=== PATIENT | female | born 1940 | race Hispanic/Latino ===

== ENCOUNTER 2018-03-13 10:07 | Outpatient (CLI) | payer MEDICARE | END 2018-03-13 10:08 | disposition home or self-care (01) | LOC: BICMAMMO 10:07 | PROVIDERS: ATTEND Family Medicine | DX: N64.89 Other specified disorders of breast (principal) | CPT/HCPCS: 77066; G0279 ==

== ENCOUNTER 2018-03-14 09:03 | Outpatient (CLI) | payer MEDICARE ==
[2018-03-14 12:58] LABS: #Eosinphils 0.1 thou/uL (0.0-0.7); #Lymphocytes 2.5 thou/uL (1.20-3.40); #Monocytes 0.4 thou/uL (0.11-0.59); #Neutrophils 3.3 thou/uL (1.40-6.50); %Basophils 0.6 % (0.0-1.0); %Eosinophils 1.3 % (0.0-10.0); %Monocytes 7.1 % (0.0-10.0); Bilirubin Negative (Negative); Blood, Urine Trace (Negative); Clarity CLEAR (Clear); Glucose, Urine (Dipstick) Negative (Negative); Hemoglobin 13.3 g/dL (12.0-16.0); Leukocyte Small (Negative); Mean Corpuscular Hemoglobin 30.6 pg (27.0-31.0); Mean Corpuscular Volume 90.1 fl (81.0-99.0); Mean Platelet Volume 7.5 fL (7.4-10.4); Nitrite Positive (Negative); Platelet Count 224 thou/uL (130-400); Protein, Urine (Dipstick) Negative (Neg-Trace); RBC Distribution Width 12.7 % (11.5-14.5); Red Blood Cell (RBC) Count 4.36 mill/uL (4.20-5.40); Specific Gravity, Urine 1.019 (1.002-1.036); Urobilinogen 0.2 mg/dL (0.2-1.0); White Blood Cell (WBC) Count 6.3 thou/uL (4.8-10.8); pH, Urine 5.5 (5.0-9.0)
[2018-03-14 13:01] LABS: Bacteria/HPF 4+ HPF (None Seen); Hyaline Casts/LPF 0-3 HYALINE CAST LPF (0-3 Hyaline); Pathc Cast-AUWi Flag 0.29 (0-2.49); Squamous Epithelial 0-3 HPF (0-3)
[2018-03-14 13:05] LABS: INR-International Normal Ratio 1.1; Prothrombin Time 14.6 SEC (12.0-14.7)
[2018-03-14 13:06] LABS: PTT 39.7 SEC (22.9-36.1)
--- NOTE | 2018-03-14 13:11 | RAD ---
PA AND LATERAL CHEST: INDICATIONS: Preop evaluation. FINDINGS: The lungs are clear. The cardiomediastinal silhouette is within normal limits. There are mitral nathan ular calcifications involving the left heart. There are calcific tendinosis involving the right grea ter tuberosity. There is a healed deformity involving the proximal left humerus. There are DISH lik e changes involving the thoracic spine. IMPRESSION: No acute cardiopulmonary abnormality POS: [facility]
[2018-03-14 13:18] LABS: Anion Gap 12 mmol/L (10-20); BUN (Urea Nitrogen) 14 mg/dL (9.8-20.1); Calc. Creatinine Clearance 0 mL/min (70-130); Calcium 9.5 mg/dL (7.8-10.44); Carbon Dioxide 22 mmol/L (23-31); Chloride 99 mmol/L (98-107); Estimated GFR-MDRD 86; Glucose 104 mg/dL (83-110); Potassium 4.5 mmol/L (3.5-5.1); Sodium 128 mmol/L (136-145)
== END 2018-03-14 09:04 | disposition home or self-care (01) ==
LOC: LABBT 09:03
PROVIDERS: ATTEND Orthopaedic Surgery
DX: Z01.818 Encounter for other preprocedural examination (principal); M17.11 Unilateral primary osteoarthritis, right knee
CPT/HCPCS: 71046; 80048; 81001; 85025; 85610; 85730; 86850; 86900; 86901; 93005; 93010

== ENCOUNTER 2018-03-19 09:19 | Inpatient (IN) | payer MEDICARE ==
[2018-03-14 09:27] VITALS: BMI 36.5
[2018-03-19] MEDS ORDERED: CEFAZOLIN/Water 2 GM/20 ML SYRINGE ONE (09:39)
[2018-03-19] MEDS ORDERED: Vancomycin HCl 1.5 GM in Sodium Chloride 0.9% 250 ML 300 ML IVPB SCH (09:45)
[2018-03-19] MEDS ORDERED: Fentanyl 100 MCG/2 ML VIAL ONE ×3 (10:14→15:49)
[2018-03-19] MEDS ORDERED: Midazolam HCl 2 mg/2 ml Vial ONE (10:14)
[2018-03-19] MEDS ORDERED: Fentanyl 100 MCG/2 ML VIAL SLOW IVP PRN (10:55)
[2018-03-19] MEDS ORDERED: diphenhydrAMINE 25 MG CAP PO PRN (10:55)
[2018-03-19] MEDS ORDERED: HYDROcodone/Acetaminophen 10/325 mg Tablet PO PRN ×2 (10:55→11:42)
[2018-03-19] MEDS ORDERED: Promethazine HCl 25 MG/ML VIAL IM PRN ×2 (10:55→11:42)
[2018-03-19] MEDS ORDERED: Acetaminophen 325 MG TAB PO PRN (10:55)
[2018-03-19] MEDS ORDERED: Ondansetron HCl/PF 4 MG/2 ML Vial IVP PRN ×2 (10:55→11:42)
[2018-03-19] MEDS ORDERED: Zolpidem Tartrate 5 MG TAB PO PRN ×2 (10:55→11:42)
[2018-03-19] MEDS ORDERED: Tranexamic Acid 1,000 MG in Sodium Chloride 0.9% 100 ML IVPB SCH (11:00)
[2018-03-19] MEDS ORDERED: Bupivacaine/Epinephrine 0.25% 30 ML VIAL ONE ×2 (11:07→13:49)
[2018-03-19] MEDS ORDERED: Fentanyl 100 MCG/2 ML VIAL IV PRN (11:45)
[2018-03-19] MEDS ORDERED: Ropivacaine 0.5% HCl/PF (150 MG/30 ML VIAL) ONE (13:49)
[2018-03-19] MEDS ORDERED: Ropivacaine 0.2% HCl/PF (40 MG/20 ML VIAL) ONE (13:49)
[2018-03-19] MEDS ORDERED: Glycopyrrolate 0.2 MG/ML 5 ML SYRINGE ONE (13:50)
[2018-03-19] MEDS ORDERED: PROPOFOL 200 MG/20 ML VIAL ONE (13:50)
[2018-03-19] MEDS ORDERED: Lidocaine 1% PF 5 ML VIAL ONE (13:50)
--- NOTE | 2018-03-19 14:08 | RAD ---
RIGHT KNEE TWO VIEWS: History: Status post arthroplasty. Comparison: None. FINDINGS: Expected post-operative changes. No malalignment. IMPRESSION: Post-operative changes compatible with right knee arthroplasty. POS: [facility]
--- NOTE | 2018-03-19 14:18 | OP ---
DATE OF PROCEDURE: 03/19/2018 PREOPERATIVE DIAGNOSIS: End-stage tricompartmental osteoarthritis, right knee. POSTOPERATIVE DIAGNOSIS: End-stage tricompartmental osteoarthritis, right knee. OPERATIVE PROCEDURE: Cemented cruciate-sparing computer-assisted navigated right total knee arthropl marc. SURGEON: Bhupendra Carlson M.D. AUTOMATIC TOE LASTER: Sriram Mccullough PA-C. ANESTHESIA: General via laryngeal mask airway augmented with indwelling femoral block and a single s hot sciatic. FINDINGS: End-stage severe degenerative tricompartmental disease, bone on bone arthrosis, periarticu lar osteophyte formation, large serous effusion. COMPONENTS USED: [facility] Triathlon cruciate-sparing, primary size 3 femoral component wi th Triathlon cemented size 2, primary tibial baseplate with A29 patellar button and a 9 mm polyethyle ne fixed bearing insert. TOURNIQUET TIME: 54 minutes at 300 mmHg. ESTIMATED BLOOD LOSS: Less than 100 mL. DRAINS: None. SPECIMENS: None. COMPLICATIONS: None. COUNTS: Correct. INDICATIONS FOR SURGERY: Danay is a 77-year-old female who has had progressive right knee p ain amplified with standing and walking for the last 5-7 years. She has failed conservative manageme nt and elected to proceed with total knee arthroplasty as definitive treatment of her pain. PROCEDURE IN DETAIL: After informed consent was obtained in the preoperative holding area. The isaiah ent was taken to the operative suite where general anesthesia was induced. Once adequate level of ge neral anesthesia was obtained, the patient was positioned and a well-padded tourniquet was placed chery und the right proximal thigh. The right lower extremity was then prepped and draped in the usual jarrett rile fashion. Prior to exsanguination, a time out was called and all members of the surgical team ag rosie upon site, surgeon, and patient. The extremity was then exsanguinated and the tourniquet was ra ised. A midline longitudinal incision was then made directly over the patella extending two fingerbr eadths above the superior pole of the patella and two fingerbreadths inferior to the inferior patella r pole of the patella. Deeper subcutaneous layers were dissected sharply and local bleeding was cont rolled with Bovie electrocautery. A quad tendon longitudinal split was then made sharply and a media n parapatellar arthrotomy was carried out both sharp and with Bovie electrocautery, carried down to o ne fingerbreadth medial to the tibial tubercle. The knee was then placed into flexion and the patell a was everted nicely, and a copious fat pad ectomy was performed allowing for greater exposure of the tibia. The computer-assisted distal femoral fiducial was then placed and pinned firmly, and the dis maddison femoral cutting guide was pinned firmly into place. The oscillating saw was then used to remove the appropriate amount of bone. The 4-in-1 cutting block was then placed on the distal femur and the oscillating saw was used to remove the appropriate amount of bone off of the anterior, posterior, an d chamfer cuts. After completion of the chamfer cuts, the box-cutting guide was placed, malleted fir mly into place and pinned securely, and an osteotome was used to make the distal cut and the oscillat ing saw was then used to make the medial and lateral box cuts. This came out quite nicely and was re moved with Bovie electrocautery, and the oscillating saw was then used to broaden the lateral medial granados of the box cut. After completion of bone cuts, the anterior cruciate ligament was resected sha rply and the posterior cruciate ligament retractor was placed and the tibia was subluxed for better e xposure. Partial meniscectomies were carried out, and the tibial computer-assisted fiducial was pinn ed, and the cutting guide was placed. Oscillating saw was then used to remove the bone with Hohmann retractors used to take care and protect the collateral ligaments. After the tibial resection was pe rformed, a laminar annealing furnace tender was placed in between the freshened bone cuts. The knee placed at 90 deg nyla and further bilateral meniscectomies were carried out, and the curved osteotome and curettage wa s used to remove any excess bone spurs in the posterior compartment. The trial femoral component, ti bial baseplate were placed with the appropriate polyethylene trial insert with an appropriate polyeth ylene spacer and patellar button. The knee was taken through full range of motion with flexion and e xtension from 0-90 degrees and patellar broach squarely in the trochlea without any squinting or sub luxation noted. The knee was also stable to varus and valgus stressing at 0, 15, 45, and 90 degrees of flexion. The drawer was negative. All trial components were then removed and the keel punch was u sed to provide the appropriate defect in the tibia with a mallet. The freshened bone cuts were copio usly irrigated with pulsatile lavage of about 1-1/2 liters to remove all excess debris. The freshene d bone cuts were then dried and with suction and lap sponge. The knee was placed in flexion and retr actors were placed to provide access to all bone cuts. Tobramycin impregnated methyl methacrylate ce ment was then placed on the freshened bone cuts and implants which were malleted firmly into place. Curettage and Sims elevators were used to remove any excess bone cement. The knee was placed into f ull extension and the patellar button was placed under compression, and the cement was allowed to cur e. Once completed, the components were again taken through full range of motion and copious irrigati on of the knee was carried out with another liter of normal saline. All components were inspected fu lly with full range of motion and varus and valgus stressing. There was no laxity noted and full exte nsion was observed clinically. Primary closure was accomplished with #2 interrupted Vicryl stitch of the arthrotomy defect. This was oversewn with a #2 running Quill barbed stitch. The subcutaneous l yue was then closed with a running 0 barbed Monocryl stitch and skin closure accomplished with a run neema subcuticular 3-0 Monocryl barbed Quill stitch and augmented with cement on the skin. Tourniquet was lowered. Good spontaneous return of distal pulses was noted clinically and a sterile dressing w as applied to the incision. The procedure was terminated without any complications. The patient was awakened in the operative suite and taken to the recovery room in stable condition.
[2018-03-19] MEDS: Sodium Chloride 0.9% 1,000 ML IV SCH ×2 (17:32→22:45)
[2018-03-19] MEDS: Ketorolac Tromethamine 30 MG/ML VIAL IM SCH ×2 (17:32→22:32)
[2018-03-19] MEDS: CEFAZOLIN/Water 2 GM/20 ML SYRINGE SLOW IVP SCH (18:56)
[2018-03-19] MEDS: Atorvastatin Calcium 10 MG TAB PO SCH (21:54)
[2018-03-19] MEDS: Aspirin 81 mg Enteric Coated Tablet PO SCH (21:54)
[2018-03-19] MEDS: Ondansetron ODT 4 MG TAB PO PRN (22:32)
[2018-03-19] MEDS: Ferrous Gluconate 324 MG TAB PO SCH (22:44)
[2018-03-19] MEDS: Senokot S 8.6-50 MG TAB PO SCH (22:45)
[2018-03-20] MEDS: CEFAZOLIN/Water 2 GM/20 ML SYRINGE SLOW IVP SCH (01:12)
--- NOTE | 2018-03-20 02:31 | PDOC.PN ---
- Subjective Encounter Start Date: 03/20/18 Encounter Start Time: 21:00 Subjective: no chest pain or sob or palpitations -: right knee pain is tolerable with current pain meds -: multiple family members at bedside - Objective MAR Reviewed: Yes Vital Signs & Weight: Vital Signs (12 hours) Temp Pulse Resp BP Pulse Ox 03/19/18 23:42 99.4 F 80 18 110/66 92 L 03/19/18 22:00 98.5 F 80 16 121/70 93 L 03/19/18 20:00 98.5 F 80 16 93 L 03/19/18 17:16 98.1 F 76 18 95 03/19/18 16:55 98.1 F 76 18 132/64 95 Weight Weight 187 lb Phys Exam - Physical Examination HEENT: PERRLA, moist MMs Neck: no JVD, supple Respiratory: no wheezing, no rales Cardiovascular: RRR, no significant murmur Gastrointestinal: soft, non-tender, positive bowel sounds Musculoskeletal: pulses present right knee in dressing Neurological: non-focal, moves all 4 limbs Psychiatric: normal affect, A&O x 3 Dx/Plan (1) Status post total knee replacement, right Code(s): Z96.651 - PRESENCE OF RIGHT ARTIFICIAL KNEE JOINT Status: Acute (2) Aortic stenosis Code(s): I35.0 - NONRHEUMATIC AORTIC (VALVE) STENOSIS Status: Chronic Qualifiers: Cardiac valve disease etiology: nonrheumatic Qualified Code(s): I35.0 - Nonrheumatic aortic (valve) stenosis Comment: valve area around 0.91cm2 (3) Hypothyroidism Code(s): E03.9 - HYPOTHYROIDISM, UNSPECIFIED Status: Chronic Qualifiers: Hypothyroidism type: unspecified Qualified Code(s): E03.9 - Hypothyroidism , unspecified (4) HTN (hypertension) Code(s): I10 - ESSENTIAL (PRIMARY) HYPERTENSION Status: Chronic Qualifiers: Hypertension type: essential hypertension Qualified Code(s): I10 - Essential (primary) hypertension (5) Dyslipidemia Code(s): E78.5 - HYPERLIPIDEMIA, UNSPECIFIED Status: Chronic - Plan watch for electrolytes this am, last sod was 128 on 03/14/18 -: continue synthroid, oxybutynin, losartan/hctz -: watch for vol overload with aortic stenosis -: morphine prn, marcaine nr block -: PT per ortho advice, encourage po intake and dc iv fluids if sbp around 110 * . Review of Systems - Medications/Allergies Allergies/Adverse Reactions: Allergies Allergy/AdvReac Type Severity Reaction Status Date / Time gabapentin [From Neurontin] Allergy Verified 03/19/18 10:34 pregabalin [From Lyrica] Allergy Verified 03/19/18 10:33 tramadol [From Ultram] Allergy Verified 03/19/18 10:33 Medications: Current Medications Acetaminophen (Tylenol) 650 mg PO Q4H PRN PRN Reason: GOODMAN/ T > 101F; Mild Pain (1-3) Hydrocodone Bitart/Acetaminophen ([place] 10/325) 1 tab PO Q4H PRN PRN Reason: Moderate Pain (4-6) Hydrocodone Bitart/Acetaminophen ([place] 10/325) 2 tab PO Q4H PRN PRN Reason: Severe Pain (7-10) Hydrocodone Bitart/Acetaminophen ([place] 10/325) 1 tab PO Q4H PRN PRN Reason: Pain (1-3) Hydrocodone Bitart/Acetaminophen ([place] 10/325) 2 tab PO Q4H PRN PRN Reason: PAIN (4-6) Aspirin (Ecotrin) 81 mg PO BID [facility] Last Admin: 03/19/18 21:54 Dose: 81 mg Atorvastatin Calcium (Lipitor) 10 mg PO HS [facility] Last Admin: 03/19/18 21:54 Dose: 10 mg Cholecalciferol (Vitamin D3) 1,000 units PO Maciel@0900 [facility] Diphenhydramine HCl (Benadryl) 25 mg PO Q6H PRN PRN Reason: Itching Duloxetine HCl (Cymbalta) 30 mg PO DAILY [facility] Fentanyl (Sublimaze) 50 mcg SLOW IVP Q30MIN PRN PRN Reason: Moderate Pain (4-6) Fentanyl (Sublimaze) 50 mcg IV Q1H PRN PRN Reason: BT PAIN Ferrous Gluconate (Fergon) 324 mg PO BID [facility] Last Admin: 03/19/18 22:44 Dose: Not Given HCTZ/Losartan Potassium (Hyzaar 50/12.5) 1 tab PO DAILY [facility] Vancomycin HCl 1.5 gm/ Sodium (Chloride) 300 mls @ 200 mls/hr IVPB WILLCALL [facility] Sodium Chloride (Normal Saline 0.9%) 1,000 mls @ 100 mls/hr IV .Q10H [facility] Last Admin: 03/19/18 22:45 Dose: Not Given Bupivacaine HCl 50 ml/ Sodium (Chloride) 100 mls @ 0 mls/hr NERVE BLCK INF [facility] PRN Reason: As Directed Iron/Minerals/Multivitamins (Theragran M) 1 tab PO DAILY [facility] Ketorolac Tromethamine (Toradol) 15 mg IM Q8HR [facility] Stop: 03/21/18 14:01 Last Admin: 03/19/18 22:32 Dose: 15 mg Levothyroxine Sodium (Synthroid) 125 mcg PO 0600 [facility] Ondansetron HCl (Zofran) 4 mg IVP Q6H PRN PRN Reason: Nausea/Vomiting Ondansetron HCl (Zofran Odt) 4 mg PO Q6H PRN PRN Reason: Nausea/Vomiting Last Admin: 03/19/18 22:32 Dose: 4 mg Oxybutynin Chloride (Ditropan Xl) 10 mg PO DAILY [facility] Pneumococcal 13-Valent Conj Vacc (Prevnar) 0.5 ml IM .ONCE ONE Stop: 03/20/18 09:01 Promethazine HCl (Phenergan) 12.5 mg IM Q4H PRN PRN Reason: Nausea/Vomiting Promethazine HCl (Phenergan) 12.5 mg IM Q4H PRN PRN Reason: Nausea Senna/Docusate Sodium (Senokot S) 2 tab PO BID [facility] Last Admin: 03/19/18 22:45 Dose: Not Given Sodium Chloride (Flush - Normal Saline) 10 ml IVF PRN PRN PRN Reason: Saline Flush Zolpidem Tartrate (Ambien) 5 mg PO HSPRN PRN PRN Reason: Insomnia Zolpidem Tartrate (Ambien) 5 mg PO HSPRN PRN PRN Reason: Insomnia
[2018-03-20] MEDS: HYDROcodone/Acetaminophen 10/325 mg Tablet PO PRN ×2 (03:13→08:45)
[2018-03-20] MEDS: Bupivacaine 0.5% 50 ML in Sodium Chloride 0.9% 50 ML NERVE BLCK SCH ×2 (03:40→17:36)
[2018-03-20] MEDS: Ketorolac Tromethamine 30 MG/ML VIAL IM SCH ×3 (05:29→22:15)
[2018-03-20] MEDS: Levothyroxine Sodium 125 MCG TAB PO SCH (05:31)
[2018-03-20 05:56] LABS: Hemoglobin 10.8 g/dL (12.0-16.0); Mean Corpuscular HGB CONC 33.8 g/dL (32.0-36.0); Mean Corpuscular Hemoglobin 30.5 pg (27.0-31.0); Mean Corpuscular Volume 90.4 fl (81.0-99.0); Mean Platelet Volume 7.5 fL (7.4-10.4); Platelet Count 160 thou/uL (130-400); RBC Distribution Width 12.5 % (11.5-14.5); Red Blood Cell (RBC) Count 3.53 mill/uL (4.20-5.40)
[2018-03-20] MEDS: Sodium Chloride 0.9% 1,000 ML IV SCH ×2 (08:40→18:11)
[2018-03-20] MEDS: DULoxetine 30 MG CAP PO SCH (08:44)
[2018-03-20] MEDS: Multivitamin W/ Minerals 1 TAB PO SCH (08:45)
[2018-03-20] MEDS: Senokot S 8.6-50 MG TAB PO SCH ×2 (08:45→20:44)
[2018-03-20] MEDS: Ferrous Gluconate 324 MG TAB PO SCH ×2 (08:45→20:44)
[2018-03-20] MEDS: Aspirin 81 mg Enteric Coated Tablet PO SCH ×2 (08:45→20:44)
[2018-03-20] MEDS: Oxybutynin ER 5 MG TAB PO SCH (08:45)
[2018-03-20] MEDS ORDERED: OXYBUTYNIN CHLORIDE PO SCH (09:00)
[2018-03-20] MEDS ORDERED: Prevnar 13-Val Conj/PF 0.5 ML SYRINGE IM ONE (09:00)
--- NOTE | 2018-03-20 17:40 | PDOC.PN ---
- Subjective Encounter Start Date: 03/20/18 Encounter Start Time: 14:40 Pt seen for followup re: hyponatremia. Denies chest pain, shortness of breath, fevers or chills. No nausea or vomiting. - Objective MAR Reviewed: Yes Vital Signs & Weight: Vital Signs (12 hours) Temp Pulse Pulse Resp BP BP BP 03/20/18 15:35 98.5 F 67 18 03/20/18 14:04 117/64 119/58 L 111/56 L 03/20/18 11:25 98.3 F 72 18 03/20/18 10:15 115/72 03/20/18 08:46 73 100/59 L 03/20/18 08:00 98.6 F 71 18 03/20/18 07:35 98.6 F 71 18 BP BP Pulse Ox Pulse Ox 03/20/18 15:35 116/72 93 L 03/20/18 14:04 105/66 03/20/18 11:25 102/63 92 L 03/20/18 10:15 03/20/18 08:46 93 L 03/20/18 08:00 03/20/18 07:35 113/67 92 L Weight Admit Weight 187 lb Weight 187 lb I&O: 03/19/18 03/20/18 03/21/18 06:59 06:59 06:59 Intake Total 1175 Output Total 1999 Balance -825 Result Diagrams: 03/20/18 04:58 Additional Labs: Labs reviewed by me Phys Exam - Physical Examination Obese HEENT: moist MMs Neck: supple Respiratory: clear to auscultation bilateral Cardiovascular: RRR Gastrointestinal: soft s/p R knee surgery Neurological: moves all 4 limbs Psychiatric: normal affect Dx/Plan (1) Hyponatremia Code(s): E87.1 - HYPO-OSMOLALITY AND HYPONATREMIA Status: Acute Comment: Likely asymptomatic. Check sodium level tomorrow AM (2) HTN (hypertension) Code(s): I10 - ESSENTIAL (PRIMARY) HYPERTENSION Status: Chronic Qualifiers: Hypertension type: essential hypertension Qualified Code(s): I10 - Essential (primary) hypertension Comment: Controlled (3) Hypothyroidism Code(s): E03.9 - HYPOTHYROIDISM, UNSPECIFIED Status: Chronic Qualifiers: Hypothyroidism type: unspecified Qualified Code(s): E03.9 - Hypothyroidism , unspecified Comment: continue levothyroxine (4) Dyslipidemia Code(s): E78.5 - HYPERLIPIDEMIA, UNSPECIFIED Status: Chronic Comment: continue statin (5) Aortic stenosis Code(s): I35.0 - NONRHEUMATIC AORTIC (VALVE) STENOSIS Status: Chronic Qualifiers: Cardiac valve disease etiology: nonrheumatic Qualified Code(s): I35.0 - Nonrheumatic aortic (valve) stenosis Comment: stable (6) Arthritis Code(s): M19.90 - UNSPECIFIED OSTEOARTHRITIS, UNSPECIFIED SITE Status: Chronic Comment: s/p R knee surgery - Plan * . Review of Systems - Review of Systems Respiratory: negative: Cough, Shortness of Breath, SOB with Excertion, Pleuritic Pain, Wheezing Cardiovascular: negative: chest pain, palpitations, orthopnea, paroxysmal nocturnal dyspnea, edema, light headedness - Medications/Allergies Allergies/Adverse Reactions: Allergies Allergy/AdvReac Type Severity Reaction Status Date / Time gabapentin [From Neurontin] Allergy Verified 03/19/18 10:34 pregabalin [From Lyrica] Allergy Verified 03/19/18 10:33 tramadol [From Ultram] Allergy Verified 03/19/18 10:33 Medications: Current Medications Acetaminophen (Tylenol) 650 mg PO Q4H PRN PRN Reason: GOODMAN/ T > 101F; Mild Pain (1-3) Hydrocodone Bitart/Acetaminophen ([place] 10/325) 1 tab PO Q4H PRN PRN Reason: Moderate Pain (4-6) Last Admin: 03/20/18 08:45 Dose: 1 tab Hydrocodone Bitart/Acetaminophen (Ogema 10/325) 2 tab PO Q4H PRN PRN Reason: Severe Pain (7-10) Hydrocodone Bitart/Acetaminophen (Ogema 10/325) 1 tab PO Q4H PRN PRN Reason: Pain (1-3) Hydrocodone Bitart/Acetaminophen (Ogema 10/325) 2 tab PO Q4H PRN PRN Reason: PAIN (4-6) Aspirin (Ecotrin) 81 mg PO BID [facility] Last Admin: 03/20/18 08:45 Dose: 81 mg Atorvastatin Calcium (Lipitor) 10 mg PO HS [facility] Last Admin: 03/19/18 21:54 Dose: 10 mg Cholecalciferol (Vitamin D3) 1,000 units PO Maciel@0900 [facility] Diphenhydramine HCl (Benadryl) 25 mg PO Q6H PRN PRN Reason: Itching Duloxetine HCl (Cymbalta) 30 mg PO DAILY [facility] Last Admin: 03/20/18 08:44 Dose: 30 mg Fentanyl (Sublimaze) 50 mcg SLOW IVP Q30MIN PRN PRN Reason: Moderate Pain (4-6) Fentanyl (Sublimaze) 50 mcg IV Q1H PRN PRN Reason: BT PAIN Ferrous Gluconate (Fergon) 324 mg PO BID [facility] Last Admin: 03/20/18 08:45 Dose: 324 mg HCTZ/Losartan Potassium (Hyzaar 50/12.5) 1 tab PO DAILY [facility] Last Admin: 03/20/18 08:45 Dose: 1 tab Vancomycin HCl 1.5 gm/ Sodium (Chloride) 300 mls @ 200 mls/hr IVPB WILLCALL [facility] Sodium Chloride (Normal Saline 0.9%) 1,000 mls @ 100 mls/hr IV .Q10H [facility] Last Admin: 03/20/18 08:40 Dose: Not Given Bupivacaine HCl 50 ml/ Sodium (Chloride) 100 mls @ 0 mls/hr NERVE BLCK INF [facility] PRN Reason: As Directed Last Admin: 03/20/18 03:40 Dose: 100 mls Iron/Minerals/Multivitamins (Theragran M) 1 tab PO DAILY [facility] Last Admin: 03/20/18 08:45 Dose: 1 tab Ketorolac Tromethamine (Toradol) 15 mg IM Q8HR [facility] Stop: 03/21/18 14:01 Last Admin: 03/20/18 14:34 Dose: 15 mg Levothyroxine Sodium (Synthroid) 125 mcg PO 0600 [facility] Last Admin: 03/20/18 05:31 Dose: 125 mcg Ondansetron HCl (Zofran) 4 mg IVP Q6H PRN PRN Reason: Nausea/Vomiting Ondansetron HCl (Zofran Odt) 4 mg PO Q6H PRN PRN Reason: Nausea/Vomiting Last Admin: 03/19/18 22:32 Dose: 4 mg Oxybutynin Chloride (Ditropan Xl) 10 mg PO DAILY [facility] Last Admin: 03/20/18 08:45 Dose: 10 mg Promethazine HCl (Phenergan) 12.5 mg IM Q4H PRN PRN Reason: Nausea/Vomiting Promethazine HCl (Phenergan) 12.5 mg IM Q4H PRN PRN Reason: Nausea Senna/Docusate Sodium (Senokot S) 2 tab PO BID [facility] Last Admin: 03/20/18 08:45 Dose: 2 tab Sodium Chloride (Flush - Normal Saline) 10 ml IVF PRN PRN PRN Reason: Saline Flush Zolpidem Tartrate (Ambien) 5 mg PO HSPRN PRN PRN Reason: Insomnia Zolpidem Tartrate (Ambien) 5 mg PO HSPRN PRN PRN Reason: Insomnia
[2018-03-20] MEDS: Atorvastatin Calcium 10 MG TAB PO SCH (20:44)
[2018-03-21] MEDS: Bupivacaine 0.5% 50 ML in Sodium Chloride 0.9% 50 ML NERVE BLCK SCH ×2 (01:30→15:42)
[2018-03-21] MEDS: Sodium Chloride 0.9% 1,000 ML IV SCH ×2 (03:36→16:23)
[2018-03-21 04:35] LABS: Hemoglobin 10.7 g/dL (12.0-16.0); Mean Corpuscular HGB CONC 34.9 g/dL (32.0-36.0); Mean Corpuscular Hemoglobin 31.7 pg (27.0-31.0); Mean Platelet Volume 7.7 fL (7.4-10.4); Platelet Count 146 thou/uL (130-400); RBC Distribution Width 12.4 % (11.5-14.5); Red Blood Cell (RBC) Count 3.36 mill/uL (4.20-5.40)
[2018-03-21 04:48] LABS: Anion Gap 8 mmol/L (10-20); BUN (Urea Nitrogen) 9 mg/dL (9.8-20.1); Calc. Creatinine Clearance 136 mL/min (70-130); Calcium 8.2 mg/dL (7.8-10.44); Carbon Dioxide 28 mmol/L (23-31); Chloride 100 mmol/L (98-107); Estimated GFR-MDRD Greater than 90; Glucose 122 mg/dL (83-110); Potassium 3.4 mmol/L (3.5-5.1); Sodium 133 mmol/L (136-145)
[2018-03-21] MEDS: Ketorolac Tromethamine 30 MG/ML VIAL IM SCH ×2 (05:43→14:24)
[2018-03-21] MEDS: Levothyroxine Sodium 125 MCG TAB PO SCH (05:44)
[2018-03-21] MEDS: Oxybutynin ER 5 MG TAB PO SCH (08:55)
[2018-03-21] MEDS: Senokot S 8.6-50 MG TAB PO SCH ×2 (08:55→20:50)
[2018-03-21] MEDS: DULoxetine 30 MG CAP PO SCH (08:55)
[2018-03-21] MEDS: Multivitamin W/ Minerals 1 TAB PO SCH (08:56)
[2018-03-21] MEDS: Ferrous Gluconate 324 MG TAB PO SCH ×2 (08:56→20:50)
[2018-03-21] MEDS: Aspirin 81 mg Enteric Coated Tablet PO SCH ×2 (08:56→20:50)
[2018-03-21] MEDS: HYDROcodone/Acetaminophen 10/325 mg Tablet PO PRN (09:02)
[2018-03-21] MEDS: Ondansetron ODT 4 MG TAB PO PRN (09:06)
[2018-03-21] MEDS ORDERED: Potassium Chloride 20 MEQ TAB PO SCH (10:00)
--- NOTE | 2018-03-21 15:06 | PDOC.PN ---
- Subjective Encounter Start Date: 03/21/18 Encounter Start Time: 15:04 Subjective: no new complaints.feels well.discussed w family as well - Objective MAR Reviewed: Yes Vital Signs & Weight: Vital Signs (12 hours) Temp Pulse Resp BP Pulse Ox 03/21/18 11:00 98.3 F 65 16 103/61 94 L 03/21/18 08:00 98.1 F 78 15 122/69 93 L 03/21/18 03:05 98.1 F 76 14 127/69 92 L Weight Admit Weight 187 lb Weight 187 lb I&O: 03/20/18 03/21/18 03/22/18 06:59 06:59 06:59 Intake Total 1175 1342 Output Total 9612 7337 Balance -643 -7471 Result Diagrams: 03/21/18 04:10 03/21/18 04:10 Additional Labs: Laboratory Tests 03/14/18 03/20/18 03/21/18 11:47 04:58 04:10 Hgb 13.3 10.8 L 10.7 L Phys Exam - Physical Examination Constitutional: NAD sitting up i recliner HEENT: PERRLA, moist MMs, sclera anicteric, TM's clear, oral pharynx no lesions , 2+ tonsils Neck: no nodes, no JVD, supple, full ROM Respiratory: no wheezing, no rales, no rhonchi, clear to auscultation bilateral Cardiovascular: RRR, no significant murmur, no rub Gastrointestinal: soft, non-tender, no distention, positive bowel sounds Musculoskeletal: no edema, pulses present Neurological: non-focal, normal sensation, moves all 4 limbs Psychiatric: normal affect, A&O x 3 Skin: no rash Dx/Plan (1) Hypokalemia Code(s): E87.6 - HYPOKALEMIA Status: Acute (2) Hyponatremia Code(s): E87.1 - HYPO-OSMOLALITY AND HYPONATREMIA Status: Acute Comment: Likely asymptomatic. Check sodium level tomorrow AM (3) Status post total knee replacement, right Code(s): Z96.651 - PRESENCE OF RIGHT ARTIFICIAL KNEE JOINT Status: Acute (4) Hypothyroidism Code(s): E03.9 - HYPOTHYROIDISM, UNSPECIFIED Status: Chronic Qualifiers: Hypothyroidism type: unspecified Qualified Code(s): E03.9 - Hypothyroidism , unspecified Comment: continue levothyroxine (5) Dyslipidemia Code(s): E78.5 - HYPERLIPIDEMIA, UNSPECIFIED Status: Chronic Comment: continue statin (6) HTN (hypertension) Code(s): I10 - ESSENTIAL (PRIMARY) HYPERTENSION Status: Chronic Qualifiers: Hypertension type: essential hypertension Qualified Code(s): I10 - Essential (primary) hypertension Comment: Controlled - Plan * . Review of Systems - Review of Systems Constitutional: negative: fever, chills, sweats, weakness, malaise, other Respiratory: negative: Cough, Dry, Shortness of Breath, Hemoptysis, SOB with Excertion, Pleuritic Pain, Sputum, Wheezing Cardiovascular: negative: chest pain, palpitations, orthopnea, paroxysmal nocturnal dyspnea, edema, light headedness, other Gastrointestinal: negative: Nausea, Vomiting, Abdominal Pain, Diarrhea, Constipation, Melena, Hematochezia, Other Genitourinary: negative: Dysuria, Frequency, Incontinence, Hematuria, Retention , Other Musculoskeletal: negative: Neck Pain, Shoulder Pain, Arm Pain, Back Pain, Hand Pain, Leg Pain, Foot Pain, Other Neurological: negative: Weakness, Numbness, Incoordination, Change in Speech, Confusion, Seizures, Other - Medications/Allergies Allergies/Adverse Reactions: Allergies Allergy/AdvReac Type Severity Reaction Status Date / Time gabapentin [From Neurontin] Allergy Verified 03/19/18 10:34 pregabalin [From Lyrica] Allergy Verified 03/19/18 10:33 tramadol [From Ultram] Allergy Verified 03/19/18 10:33 Medications: Current Medications Acetaminophen (Tylenol) 650 mg PO Q4H PRN PRN Reason: [place]/ T > 101F; Mild Pain (1-3) Hydrocodone Bitart/Acetaminophen ([place] 10/325) 1 tab PO Q4H PRN PRN Reason: Moderate Pain (4-6) Last Admin: 03/21/18 09:02 Dose: 1 tab Hydrocodone Bitart/Acetaminophen ([place] 10/325) 2 tab PO Q4H PRN PRN Reason: Severe Pain (7-10) Hydrocodone Bitart/Acetaminophen ([place] 10/325) 1 tab PO Q4H PRN PRN Reason: Pain (1-3) Hydrocodone Bitart/Acetaminophen ([place] 10/325) 2 tab PO Q4H PRN PRN Reason: PAIN (4-6) Aspirin (Ecotrin) 81 mg PO BID [facility] Last Admin: 03/21/18 08:56 Dose: 81 mg Atorvastatin Calcium (Lipitor) 10 mg PO HS [facility] Last Admin: 03/20/18 20:44 Dose: 10 mg Cholecalciferol (Vitamin D3) 1,000 units PO Maciel@0900 [facility] Diphenhydramine HCl (Benadryl) 25 mg PO Q6H PRN PRN Reason: Itching Duloxetine HCl (Cymbalta) 30 mg PO DAILY [facility] Last Admin: 03/21/18 08:55 Dose: 30 mg Fentanyl (Sublimaze) 50 mcg SLOW IVP Q30MIN PRN PRN Reason: Moderate Pain (4-6) Fentanyl (Sublimaze) 50 mcg IV Q1H PRN PRN Reason: BT PAIN Ferrous Gluconate (Fergon) 324 mg PO BID [facility] Last Admin: 03/21/18 08:56 Dose: 324 mg HCTZ/Losartan Potassium (Hyzaar 50/12.5) 1 tab PO DAILY [facility] Last Admin: 03/21/18 08:56 Dose: 1 tab Vancomycin HCl 1.5 gm/ Sodium (Chloride) 300 mls @ 200 mls/hr IVPB WILLCALL [facility] Sodium Chloride (Normal Saline 0.9%) 1,000 mls @ 100 mls/hr IV .Q10H [facility] Last Admin: 03/21/18 03:36 Dose: Not Given Bupivacaine HCl 50 ml/ Sodium (Chloride) 100 mls @ 0 mls/hr NERVE BLCK INF [facility] PRN Reason: As Directed Last Admin: 03/21/18 01:30 Dose: 100 mls Iron/Minerals/Multivitamins (Theragran M) 1 tab PO DAILY [facility] Last Admin: 03/21/18 08:56 Dose: 1 tab Levothyroxine Sodium (Synthroid) 125 mcg PO 0600 [facility] Last Admin: 03/21/18 05:44 Dose: 125 mcg Ondansetron HCl (Zofran) 4 mg IVP Q6H PRN PRN Reason: Nausea/Vomiting Ondansetron HCl (Zofran Odt) 4 mg PO Q6H PRN PRN Reason: Nausea/Vomiting Last Admin: 03/21/18 09:06 Dose: 4 mg Oxybutynin Chloride (Ditropan Xl) 10 mg PO DAILY [facility] Last Admin: 03/21/18 08:55 Dose: 10 mg Promethazine HCl (Phenergan) 12.5 mg IM Q4H PRN PRN Reason: Nausea/Vomiting Promethazine HCl (Phenergan) 12.5 mg IM Q4H PRN PRN Reason: Nausea Senna/Docusate Sodium (Senokot S) 2 tab PO BID [facility] Last Admin: 03/21/18 08:55 Dose: 2 tab Sodium Chloride (Flush - Normal Saline) 10 ml IVF PRN PRN PRN Reason: Saline Flush Zolpidem Tartrate (Ambien) 5 mg PO HSPRN PRN PRN Reason: Insomnia
[2018-03-21] MEDS: Atorvastatin Calcium 10 MG TAB PO SCH (20:50)
[2018-03-22] MEDS: Bupivacaine 0.5% 50 ML in Sodium Chloride 0.9% 50 ML NERVE BLCK SCH (04:15)
[2018-03-22 05:35] LABS: Hemoglobin 10.4 g/dL (12.0-16.0); Mean Corpuscular HGB CONC 33.8 g/dL (32.0-36.0); Mean Corpuscular Hemoglobin 30.6 pg (27.0-31.0); Mean Corpuscular Volume 90.6 fl (81.0-99.0); Mean Platelet Volume 7.3 fL (7.4-10.4); Platelet Count 151 thou/uL (130-400); RBC Distribution Width 12.4 % (11.5-14.5); Red Blood Cell (RBC) Count 3.38 mill/uL (4.20-5.40); White Blood Cell (WBC) Count 10.3 thou/uL (4.8-10.8)
[2018-03-22 05:48] LABS: Anion Gap 9 mmol/L (10-20); BUN (Urea Nitrogen) 12 mg/dL (9.8-20.1); Calc. Creatinine Clearance 123 mL/min (70-130); Calcium 8.2 mg/dL (7.8-10.44); Carbon Dioxide 28 mmol/L (23-31); Chloride 99 mmol/L (98-107); Estimated GFR-MDRD Greater than 90; Glucose 142 mg/dL (83-110); Potassium 4.4 mmol/L (3.5-5.1); Sodium 132 mmol/L (136-145)
[2018-03-22] MEDS: HYDROcodone/Acetaminophen 10/325 mg Tablet PO PRN ×2 (06:30→10:45)
[2018-03-22] MEDS: Levothyroxine Sodium 125 MCG TAB PO SCH (06:30)
[2018-03-22] MEDS: Sodium Chloride 0.9% 1,000 ML IV SCH ×2 (06:57→10:35)
[2018-03-22] MEDS: DULoxetine 30 MG CAP PO SCH (08:56)
[2018-03-22] MEDS: Aspirin 81 mg Enteric Coated Tablet PO SCH (08:56)
[2018-03-22] MEDS: Ferrous Gluconate 324 MG TAB PO SCH (08:56)
[2018-03-22] MEDS: Multivitamin W/ Minerals 1 TAB PO SCH (08:57)
[2018-03-22] MEDS: Oxybutynin ER 5 MG TAB PO SCH (08:57)
[2018-03-22] MEDS: Senokot S 8.6-50 MG TAB PO SCH (08:57)
[2018-03-22 11:58] VITALS: BP 101/62; TEMP 97.9
--- NOTE | 2018-03-22 13:51 | PDOC.EVN ---
Event Note - Event Note Event Note: Pt discharged by primary team prior to me seeing pt. Chart reviewed.Labs checked.H/H stable potasium improved.
== END 2018-03-22 11:50 | DRG 470 ==
LOC: SDC 09:19 → SURG A 10:55
PROVIDERS: ADMIT Orthopaedic Surgery; ATTEND Orthopaedic Surgery
PROC: 0SRC0J9 Replacement of Right Knee Joint with Synthetic Substitute, Cemented, Open Approach (ICD-10-PCS; principal; 2018-03-19)
DX: M17.11 Unilateral primary osteoarthritis, right knee (principal); E87.1 Hypo-osmolality and hyponatremia; E87.6 Hypokalemia; E03.9 Hypothyroidism, unspecified; E78.5 Hyperlipidemia, unspecified; I10 Essential (primary) hypertension; I35.0 Nonrheumatic aortic (valve) stenosis
CPT/HCPCS: 36415; 80048; 85027; C1713; C1776; G8978-GP-CK; G8979-GP-CJ; J1885; J2001; J2250; J2704; J2795; J3010; J3370; J3490; J7050; Q0162

== ENCOUNTER 2018-04-14 14:49 | Emergency (ER) | payer MEDICARE ==
[~2018-04-14 14:49] MED LIST: ISOVUE-370 76%-LOCM 1 ML ONE
[2018-04-14 15:31] LABS: #Eosinphils 0.1 thou/uL (0.0-0.7); #Lymphocytes 2.5 thou/uL (1.20-3.40); #Monocytes 0.4 thou/uL (0.11-0.59); #Neutrophils 3.3 thou/uL (1.40-6.50); %Basophils 0.3 % (0.0-1.0); %Monocytes 6.7 % (0.0-10.0); Hemoglobin 12.3 g/dL (12.0-16.0); Mean Corpuscular HGB CONC 34.5 g/dL (32.0-36.0); Mean Corpuscular Hemoglobin 31.3 pg (27.0-31.0); Mean Corpuscular Volume 90.8 fl (81.0-99.0); Mean Platelet Volume 6.7 fL (7.4-10.4); Platelet Count 238 thou/uL (130-400); RBC Distribution Width 13.4 % (11.5-14.5); Red Blood Cell (RBC) Count 3.94 mill/uL (4.20-5.40); White Blood Cell (WBC) Count 6.4 thou/uL (4.8-10.8)
--- NOTE | 2018-04-14 15:32 | RAD ---
CHEST 1 VIEW: HISTORY: Chest pain. COMPARISON: 02/13/17. FINDINGS: Cardiac silhouette is magnified by projection. Pulmonary vasculature upper limits of normal. Medias tinum midline with aortic calcification. No lobar consolidation or evidence of pneumothorax. Cardia c monitor leads overlie the chest. Left hemidiaphragm remains slightly elevated. IMPRESSION: Atherosclerosis. No active cardiopulmonary abnormalities are otherwise demonstrated. POS: [facility]
[2018-04-14 15:44] LABS: ALT (SGPT) 20 U/L (8-55); AST (SGOT) 25 U/L (5-34); Alkaline Phosphatase 59 U/L (40-150); Anion Gap 13 mmol/L (10-20); BUN (Urea Nitrogen) 11 mg/dL (9.8-20.1); Bilirubin, Total 0.4 mg/dL (0.2-1.2); CK (CPK) 52 U/L (29-168); Calc. Creatinine Clearance 0 mL/min (70-130); Carbon Dioxide 27 mmol/L (23-31); Chloride 98 mmol/L (98-107); Estimated GFR-MDRD Greater than 90; Globulin 3.9 g/dL (2.4-3.5); Glucose 127 mg/dL (83-110); Potassium 4.1 mmol/L (3.5-5.1); Protein, Total 7.9 g/dL (6.0-8.3); Sodium 134 mmol/L (136-145)
[2018-04-14 15:47] LABS: CKMB 0.8 ng/mL (0-6.6); Troponin I Less than 0.010 ng/mL (< 0.028)
--- NOTE | 2018-04-14 16:36 | ULT ---
ULTRASOUND VENOUS DOPPLER RIGHT UNILATERAL: History: Right lower extremity swelling after knee surgery. Technique: Real-time grayscale, color, and spectral analysis of the right lower extremity system was performed. The common femoral, femoral, proximal portion of the greater saphenous and femoral veins w ere interrogated, as well as the popliteal and posterior tibial veins. FINDINGS: Normal flow, augmentation, and compression. No deep venous thrombosis. POS: [facility]
--- NOTE | 2018-04-14 17:32 | CT ---
CT OF CHEST WITH CONTRAST: History: Chest pain. Comparison: None. Technique: CT of the chest performed after the intravenous administration of contrast. 3D rendering i s provided. FINDINGS: Surgical clips around the expected location of the thyroid. No normal thyroid tissue is appreciated. No proximal segmental pulmonary arterial filling defect. The pulmonary trunk size is normal. No aneur ysmal dilatation of the aorta. Heart is mildly enlarged. No pericardial effusion. No adenopathy. Upper abdomen is relatively unremarkable. There appears to be a small diverticulum of the gastric fundus. There is a peripheral pleural based 3 mm pulmonary nodule in the right middle lobe. No pneumothorax o r effusion. No focal consolidation. No displaced rib fracture. IMPRESSION: No proximal segmental pulmonary arterial filling defect. No acute intrathoracic abnormality. POS: [facility]
== END 2018-04-14 18:15 | disposition home or self-care (01) ==
LOC: ERS 14:49
DX: R07.89 Other chest pain (principal); E78.5 Hyperlipidemia, unspecified; I10 Essential (primary) hypertension; I67.9 Cerebrovascular disease, unspecified; Z79.899 Other long term (current) drug therapy
CPT/HCPCS: 36415; 71045; 71275; 80053; 82553; 84484; 85025; 85379; 93005; 94760

== ENCOUNTER 2018-07-05 06:05 | Day surgery (SDC) | payer MEDICARE ==
[2018-07-04 12:19] VITALS: BMI 40.3
[2018-07-05] MEDS ORDERED: Fentanyl 100 MCG/2 ML VIAL ONE (06:41)
[2018-07-05] MEDS ORDERED: Midazolam HCl 2 mg/2 ml Vial ONE (06:41)
[2018-07-05 07:14] LABS: Hemoglobin 12.5 g/dL (12.0-16.0); Mean Corpuscular HGB CONC 34.3 g/dL (32.0-36.0); Mean Corpuscular Hemoglobin 30.8 pg (27.0-31.0); Mean Corpuscular Volume 89.6 fL (78.0-98.0); Mean Platelet Volume 7.1 fL (7.4-10.4); Platelet Count 196 thou/uL (130-400); RBC Distribution Width 12.6 % (11.5-14.5); Red Blood Cell (RBC) Count 4.05 mill/uL (4.20-5.40)
[2018-07-05 07:41] LABS: Anion Gap 10 mmol/L (10-20); BUN (Urea Nitrogen) 10 mg/dL (9.8-20.1); Calc. Creatinine Clearance 108 mL/min (70-130); Calcium 9.4 mg/dL (7.8-10.44); Carbon Dioxide 30 mmol/L (23-31); Chloride 101 mmol/L (98-107); Estimated GFR-MDRD Greater than 90; Glucose 117 mg/dL (83-110); Potassium 4.3 mmol/L (3.5-5.1); Sodium 137 mmol/L (136-145)
--- NOTE | 2018-07-05 08:52 | OP ---
DATE OF PROCEDURE: 07/05/2018 PREOPERATIVE DIAGNOSIS: Arthrofibrosis, right knee. POSTOPERATIVE DIAGNOSIS: Arthrofibrosis, right knee. PROCEDURE: Manipulation under anesthesia. SURGEON: Dr. Bhupendra Carlson NARRATIVE REPORT: The patient was placed under anesthesia, she had full extension, flexion was about 85 degrees without pressure and then with gentle manipulation, I was able to achieve 125 degrees [address] bruno. The patient then emerged from anesthesia without difficulty.
== END 2018-07-05 08:50 | disposition home or self-care (01) ==
LOC: SDC 06:05
PROVIDERS: ATTEND Orthopaedic Surgery
PROC: 0SNCXZZ Release Right Knee Joint, External Approach (ICD-10-PCS; principal; 2018-07-05)
DX: M24.661 Ankylosis, right knee (principal); I10 Essential (primary) hypertension; K21.9 Gastro-esophageal reflux disease without esophagitis; E78.5 Hyperlipidemia, unspecified; E89.0 Postprocedural hypothyroidism; M17.12 Unilateral primary osteoarthritis, left knee; Z79.82 Long term (current) use of aspirin; Z79.899 Other long term (current) drug therapy; Z98.890 Other specified postprocedural states; Z88.5 Allergy status to narcotic agent; Z88.8 Allergy status to other drugs, medicaments and biological substances; Z96.651 Presence of right artificial knee joint
CPT/HCPCS: 80048; 85027; J2250; J3010

== ENCOUNTER 2018-10-16 10:53 | Emergency (ER) | payer MEDICARE ==
[2018-10-16] MEDS ORDERED: Oxymetazoline HCl 0.05% ( 15 ML ) ONE (11:54)
[2018-10-16] MEDS ORDERED: Acetaminophen 500 MG TAB ONE (14:46)
== END 2018-10-16 14:47 | disposition home or self-care (01) ==
LOC: ERS 10:53
DX: R04.0 Epistaxis (principal); E03.9 Hypothyroidism, unspecified; I10 Essential (primary) hypertension; Z79.82 Long term (current) use of aspirin; Z79.899 Other long term (current) drug therapy
CPT/HCPCS: 99283

== ENCOUNTER 2019-07-04 14:32 | Outpatient (CLI) | payer MEDICARE ==
--- NOTE | 2019-07-04 15:50 | BD ---
DEXA BONE DENSITOMETRY: (Dual energy x-ray absorptiometry) DATE: 07/04/2019 HISTORY: 78-year old female for age-related, post-menopausal, osteoporosis screening. weight: 180 lbs height: 61 in. age of menopause: 47 COMPARISON: None available. FINDINGS: The bone mineral density (BMD) is given in grams per square centimeter (g/cm2): LUMBAR SPINE: BMD (g/cm^2) T score Z score L1: 0.929 -0.6 1.7 L2: 0.875 -1.4 1.1 L3: 0.960 -1.1 1.5 L4: 0.947 -1.0 1.6 Total: 0.931 -1.1 1.5 HIP: BMD (g/cm^2) T score Z score Femoral neck: 0.668 -1.6 0.4 Total: 0.855 -0.7 1.1 FRAX WHO fracture risk assessment tool: 10 year fracture risk* Major osteoporotic fracture: 18 % Hip fracture: 3.5 % Reported risk factors: US (), neck BMD = 0.668 (g/cm^2), BMI = 34.0, and previous fracture. *Fracture probability is calculated for an untreated patient. Fracture probability may be lower if th e patient has received treatment. IMPRESSION: 1.) The mean bone mineral density of the lumbar spine is osteopenic. Fracture risk is increased. 2) The bone mineral density of the femoral neck is osteopenic. Fracture risk is increased.
== END 2019-07-04 14:33 | disposition home or self-care (01) ==
LOC: BICMAMMO 14:32
PROVIDERS: ATTEND Family Medicine
DX: Z13.820 Encounter for screening for osteoporosis (principal); M85.89 Other specified disorders of bone density and structure, multiple sites
CPT/HCPCS: 77080

== ENCOUNTER 2019-09-12 10:31 | Day surgery (SDC) | payer MEDICARE ==
[2019-09-11 10:44] VITALS: BMI 31.2
[2019-09-12 11:45] LABS: #Eosinphils 0.1 thou/uL (0.0-0.7); #Lymphocytes 2.1 thou/uL (1.20-3.40); #Monocytes 0.3 thou/uL (0.11-0.59); #Neutrophils 3.3 thou/uL (1.40-6.50); %Basophils 0.2 % (0.0-1.0); %Lymphocytes 36.6 % (21.0-51.0); %Monocytes 5.5 % (0.0-10.0); %Neutrophils 55.7 % (42.0-75.0); Hemoglobin 12.4 g/dL (12.0-16.0); Mean Corpuscular Hemoglobin 31.1 pg (27.0-31.0); Mean Corpuscular Volume 91.4 fL (78.0-98.0); Mean Platelet Volume 7.5 fL (7.4-10.4); Platelet Count 194 thou/uL (130-400); RBC Distribution Width 12.5 % (11.5-14.5); Red Blood Cell (RBC) Count 3.99 mill/uL (4.20-5.40); White Blood Cell (WBC) Count 5.8 thou/uL (4.8-10.8)
[2019-09-12 11:49] LABS: INR-International Normal Ratio 1.1; Prothrombin Time 14.3 SEC (12.0-14.7)
[2019-09-12 11:50] LABS: PTT 37.8 SEC (22.9-36.1)
[2019-09-12 11:56] LABS: Anion Gap 12 mmol/L (10-20); BUN (Urea Nitrogen) 13 mg/dL (9.8-20.1); Calc. Creatinine Clearance 98 mL/min (70-130); Calcium 9.1 mg/dL (7.8-10.44); Carbon Dioxide 31 mmol/L (23-31); Chloride 99 mmol/L (98-107); Estimated GFR-MDRD Greater than 90; Glucose 109 mg/dL (83-110); Sodium 138 mmol/L (136-145)
[2019-09-12] MEDS ORDERED: PROPOFOL 20 ML ONE (12:27)
[2019-09-12] MEDS ORDERED: Phenylephrine HCL 10 MG/ML VIAL ONE (12:27)
--- NOTE | 2019-09-12 14:24 | EKG ---
Test Reason : PREOP PATTY Blood Pressure : / mmHG Vent. Rate : 066 BPM Atrial Rate : 066 BPM P-R Int : 172 ms QRS Dur : 108 ms QT Int : 432 ms P-R-T Axes : 037 -04 068 degrees QTc Int : 452 ms Normal sinus rhythm Normal ECG When compared with ECG of 14-APR-2018 15:06, No significant change was found Confirmed by DR. Anne Marie ROJO ([id number]) on 09/12/2019 2:23:51 PM Referred By: ELIESER Confirmed By:DR. Anne Marie ROJO
--- NOTE | 2019-09-12 20:54 | ECHO ---
DATE OF SERVICE: 09/12/19 PREPROCEDURE DIAGNOSIS: Severe aortic stenosis and moderate mitral regurgitation. Transesophageal echo was done to make sure that she did not have severe mitral regurgitation. The Anesthesiology department provided with sedation for the patient. Please see their notes for det ails. After adequate sedation was achieved, transesophageal probe was inserted into the mouth and into the esophagus. Multiplanar views were obtained. Left ventricle is normal size, normal wall thickness. Systolic function is normal. Estimated EF at 5 5-60%. Left atrium is dilated. Left atrial appendage is small with normal velocities. Right atrium is normal size. The interatrial septum appears to be intact by color Doppler and agitated saline study. The right ventricle is normal size with normal systolic function. Aortic valve is heavily calcified with reduced cusp opening. Mitral valve has mitral annular calcification with moderate MR. No stenosis. Tricuspid valve is structurally normal. There is mild TR. Pulmonary valve is structurally normal. There is mild PI. CONCLUSIONS: 1. Normal LV systolic function, EF at 55-60%. 2. Mitral annular calcifications with moderate MR. 3. Aortic valve is heavily calcified with reduced cusp opening consistent with her history of severe aortic stenosis. 4. Mild TR. 5. Mild PI. Continue plan to refer to [place] for TAVR.
== END 2019-09-12 14:05 | disposition home or self-care (01) ==
LOC: SDC 10:31
PROVIDERS: ATTEND Internal Medicine Cardiovascular Disease
PROC: B24BZZ4 Ultrasonography of Heart with Aorta, Transesophageal (ICD-10-PCS; principal; 2019-09-12)
DX: I08.1 Rheumatic disorders of both mitral and tricuspid valves (principal); I10 Essential (primary) hypertension; E78.5 Hyperlipidemia, unspecified; K21.9 Gastro-esophageal reflux disease without esophagitis; M19.90 Unspecified osteoarthritis, unspecified site; Z88.8 Allergy status to other drugs, medicaments and biological substances
CPT/HCPCS: 80048; 85025; 85610; 85730; 93005; 93010; 93312; J2370; J2704

== ENCOUNTER 2020-12-01 16:00 | Outpatient (CLI) | payer MEDICARE, MEDICAID ==
--- NOTE | 2020-12-01 18:34 | RAD ---
LUMBAR SPINE: 12/01/20 Two views. INDICATIONS: Low back pain. COMPARISON: Lumbar films from 2016. Mild degenerative wedging at T11, T12, and L1 is stable from prior exam. Loss of disc space with spur ring at these levels again noted. Lumbar vertebrae otherwise maintain height and alignment. There is a slight posterolisthesis at L3-4 which is also stable from the prior exam. Minimal wedging of L3 is stable and chronic. Facet hypertrophy is prominent at L4-5 and L5-S1. IMPRESSION: Degenerative changes of the lumbar spine appear stable from the 02/09/2016 exam. POS: [facility]
== END 2020-12-01 16:01 | disposition home or self-care (01) ==
LOC: BICRAD 16:00
PROVIDERS: ATTEND Family Medicine
DX: M54.5 Low back pain (principal); M47.816 Spondylosis without myelopathy or radiculopathy, lumbar region
CPT/HCPCS: 72100

== ENCOUNTER 2022-12-14 10:53 | Day surgery (SDC) | payer MEDICARE, MEDICAID ==
[2022-12-13 10:44] VITALS: BMI 32.4
[2022-12-14] MEDS ORDERED: PROPOFOL 40 ML ONE (11:54)
[2022-12-14] MEDS ORDERED: Lidocaine 1% PF 5 ML VIAL ONE (12:45)
== END 2022-12-14 14:00 | disposition home or self-care (01) ==
LOC: SDC 10:53
PROVIDERS: ATTEND Internal Medicine Cardiovascular Disease
PROC: B246ZZ4 Ultrasonography of Right and Left Heart, Transesophageal (ICD-10-PCS; principal; 2022-12-14)
DX: I08.3 Combined rheumatic disorders of mitral, aortic and tricuspid valves (principal); I70.0 Atherosclerosis of aorta; I11.9 Hypertensive heart disease without heart failure; E78.5 Hyperlipidemia, unspecified; K21.9 Gastro-esophageal reflux disease without esophagitis; E89.0 Postprocedural hypothyroidism; M19.90 Unspecified osteoarthritis, unspecified site; I25.10 Atherosclerotic heart disease of native coronary artery without angina pectoris; Z79.82 Long term (current) use of aspirin; Z79.890 Hormone replacement therapy; Z79.899 Other long term (current) drug therapy; Z88.5 Allergy status to narcotic agent; Z88.8 Allergy status to other drugs, medicaments and biological substances; Z95.2 Presence of prosthetic heart valve
CPT/HCPCS: 93312; J2704

== ENCOUNTER 2023-02-01 10:00 | Emergency (ER) | payer MEDICARE, MEDICAID ==
[2023-02-01 10:47] LABS: #Eosinphils 0.1 thou/uL (0.0-0.7); #Lymphocytes 2.5 thou/uL (1.20-3.40); #Monocytes 0.4 thou/uL (0.11-0.59); #Neutrophils 3.3 thou/uL (1.40-6.50); %Basophils 0.7 % (0.0-1.0); %Eosinophils 2.3 % (0.0-10.0); %Lymphocytes 39.2 % (21.0-51.0); %Monocytes 5.9 % (0.0-10.0); %Neutrophils 51.8 % (42.0-75.0); Hemoglobin 12.3 g/dL (12.0-16.0); Mean Corpuscular HGB CONC 34.1 g/dL (32.0-36.0); Mean Corpuscular Volume 93.8 fl (78.0-98.0); Mean Platelet Volume 7.9 fL (7.4-10.4); Platelet Count 180 10x3/uL (130-400); RBC Distribution Width 12.1 % (11.5-14.5); Red Blood Cell (RBC) Count 3.86 mill/uL (4.20-5.40); White Blood Cell (WBC) Count 6.3 10x3/uL (4.8-10.8)
[2023-02-01 10:57] LABS: Bacteria/HPF None Seen HPF (None Seen); Bilirubin Negative (Negative); Blood, Urine 1+ (Negative); Clarity Clear (Clear); Glucose, Urine (Dipstick) Normal (Negative); Ketone, Urine Negative (Negative); Leukocyte Negative Leu/uL (Negative); Nitrite Negative (Negative); Protein, Urine (Dipstick) Negative (Neg-Trace); RBC/HPF 0-3 HPF (0-3); Specific Gravity, Urine 1.011 (1.002-1.036); Squamous Epithelial 0-3 HPF (0-3); Urobilinogen Normal mg/dL (Less than 2); WBC/HPF 0-3 HPF (0-3)
[2023-02-01 11:07] LABS: ALT (SGPT) 20 U/L (8-55); AST (SGOT) 30 U/L (5-34); Albumin 4.3 g/dL (3.4-4.8); Alkaline Phosphatase 31 U/L (40-110); Anion Gap 14 mmol/L (10-20); BUN (Urea Nitrogen) 14 mg/dL (9.8-20.1); Bilirubin, Total 0.5 mg/dL (0.2-1.2); CK (CPK) 59 U/L (29-168); Calc. Creatinine Clearance 0 mL/min (70-130); Calcium 9.2 mg/dL (7.8-10.44); Carbon Dioxide 26 mmol/L (23-31); Chloride 98 mmol/L (98-107); Estimated GFR 90; Globulin 3.6 g/dL (2.4-3.5); Glucose 110 mg/dL (83-110); Potassium 4.6 mmol/L (3.5-5.1); Protein, Total 7.9 g/dL (5.8-8.1); Sodium 133 mmol/L (136-145)
[2023-02-01 11:30] LABS: CKMB 1.5 ng/mL (0-6.6)
[2023-02-01 13:03] LABS: Troponin I 0.034 ng/mL (< 0.028)
== END 2023-02-01 13:38 | disposition home or self-care (01) ==
LOC: ERS 10:00
DX: M79.81 Nontraumatic hematoma of soft tissue (principal); E03.9 Hypothyroidism, unspecified; E78.00 Pure hypercholesterolemia, unspecified; I10 Essential (primary) hypertension
CPT/HCPCS: 36415; 76936; 80053; 81003; 81015; 82550; 82553; 84484; 85025; 93005

== ENCOUNTER 2023-06-08 08:48 | Outpatient (CLI) | payer MEDICARE, MEDICAID ==
[2023-06-08] MEDS ORDERED: Iopamidol 370 76% 100 ML VIAL ONE (10:08)
== END 2023-06-08 08:49 | disposition home or self-care (01) ==
LOC: CT 08:48
PROVIDERS: ATTEND Family Medicine
DX: R05.2 Subacute cough (principal); R79.1 Abnormal coagulation profile; I51.7 Cardiomegaly; R09.89 Other specified symptoms and signs involving the circulatory and respiratory systems
CPT/HCPCS: 71046; 71275; Q9967

== ENCOUNTER 2023-06-15 08:59 | Outpatient (CLI) | payer MEDICARE, MEDICAID | END 2023-06-15 09:00 | disposition home or self-care (01) | LOC: ULT 08:59 | PROVIDERS: ATTEND Family Medicine | DX: R79.1 Abnormal coagulation profile (principal) | CPT/HCPCS: 93970 ==

== ENCOUNTER 2023-08-10 07:48 | Outpatient (CLI) | payer MEDICARE, MEDICAID ==
[2023-08-10] MEDS ORDERED: Iopamidol 370 76% 100 ML VIAL ONE (09:56)
== END 2023-08-10 07:49 | disposition home or self-care (01) ==
LOC: CT 07:48
PROVIDERS: ATTEND Otolaryngology Plastic Surgery within the Head & Neck
DX: J38.01 Paralysis of vocal cords and larynx, unilateral (principal); M16.0 Bilateral primary osteoarthritis of hip
CPT/HCPCS: 70491; Q9967

== ENCOUNTER 2023-11-15 17:33 | Inpatient (IN) | payer MEDICARE, MEDICAID ==
[~2023-11-15 17:33] MED LIST changes: -ISOVUE-370 76%-LOCM 1 ML ONE; +Iopamidol-370 76% 500 ML MDV (1 ML CHARGE) ONE
[2023-11-15 18:39] LABS: #Basophils 0.1 thou/uL (0.0-0.2); #Eosinphils 0.2 thou/uL (0.0-0.7); #Monocytes 0.5 thou/uL (0.11-0.59); #Neutrophils 5.4 thou/uL (1.40-6.50); %Basophils 0.7 % (0.0-1.0); %Eosinophils 2.6 % (0.0-10.0); %Monocytes 6.4 % (0.0-10.0); %Neutrophils 70.2 % (42.0-75.0); Hematocrit 35.8 % (36.0-47.0); Mean Corpuscular HGB CONC 33.5 g/dL (32.0-36.0); Mean Corpuscular Hemoglobin 29.5 pg (27.0-31.0); Mean Platelet Volume 9.7 fL (7.4-10.4); Platelet Count 205 10x3/uL (130-400); RBC Distribution Width 14.3 % (11.5-14.5); Red Blood Cell (RBC) Count 4.07 mill/uL (4.20-5.40); White Blood Cell (WBC) Count 7.7 10x3/uL (4.8-10.8)
[2023-11-15] MEDS ORDERED: Ondansetron PF 4 MG/2 ML Vial ONE (19:07)
[2023-11-15] MEDS ORDERED: Morphine 4 MG/ML VIAL ONE (19:07)
[2023-11-15 19:09] LABS: ALT (SGPT) 13 U/L (8-55); AST (SGOT) 37 U/L (5-34); Albumin 4.3 g/dL (3.4-4.8); Alkaline Phosphatase 44 U/L (40-110); Anion Gap 14 mmol/L (10-20); BUN (Urea Nitrogen) 17 mg/dL (9.8-20.1); Calc. Creatinine Clearance 0 mL/min (70-130); Calcium 8.8 mg/dL (7.8-10.44); Carbon Dioxide 32 mmol/L (23-31); Chloride 95 mmol/L (98-107); Estimated GFR 87; Glucose 145 mg/dL (83-110); Lipase 42 U/L (8-78); Potassium 3.6 mmol/L (3.5-5.1); Protein, Total 8.3 g/dL (5.8-8.1); Sodium 137 mmol/L (136-145)
[2023-11-15 19:43] LABS: Magnesium 1.9 mg/dL (1.6-2.6)
[2023-11-15 21:02] LABS: Bacteria/HPF None Seen HPF (None Seen); Bilirubin Negative (Negative); Blood, Urine 2+ (Negative); CAUTI Indications for Culture Pelvic or flank pain; Clarity Clear (Clear); Glucose, Urine (Dipstick) Normal (Negative); Ketone, Urine Negative (Negative); Leukocyte 25 Leu/uL (Negative); Nitrite Negative (Negative); Protein, Urine (Dipstick) Negative (Neg-Trace); Specific Gravity, Urine 1.023 (1.002-1.036); Squamous Epithelial 0-3 HPF (0-3); Urine Culture Reflex No No; Urobilinogen Normal mg/dL (Less than 2); WBC/HPF 0-3 HPF (0-3)
[2023-11-15] MEDS ORDERED: Meclizine HCl 25 MG TAB ONE (22:06)
[2023-11-15 22:57] LABS: Critical Call Chem Troponin I NUR.CJM1@2256; Troponin I 1.787 ng/mL (< 0.028)
[2023-11-15] MEDS ORDERED: Aspirin Chewable 81 MG TAB ONE (23:16)
[2023-11-15] MEDS ORDERED: Enoxaparin 80 MG (0.8 mL) SYRINGE ONE (23:16)
[2023-11-15] MEDS ORDERED: Ondansetron ODT 4 MG TAB SL PRN (23:45)
[2023-11-15] MEDS ORDERED: Sodium Chloride 0.9% 1,000 ML IV SCH (23:45)
[2023-11-15] MEDS ORDERED: Ondansetron PF 4 MG/2 ML Vial IVP PRN (23:45)
[2023-11-15] MEDS ORDERED: Acetaminophen 325 MG TAB PO PRN (23:56)
[2023-11-16 01:22] LABS: Critical Call Chem Troponin I RESULT DECREASING
[2023-11-16 03:38] LABS: Free T4 (Free Thyroxine) 1.24 ng/dL (0.70-1.48)
[2023-11-16 05:00] LABS: SARS-CoV-2 NAA Rapid Test Not Detected (NotDetected)
[2023-11-16 05:58] LABS: #Basophils 0.1 thou/uL (0.0-0.2); #Eosinphils 0.1 thou/uL (0.0-0.7); #Monocytes 0.4 thou/uL (0.11-0.59); #Neutrophils 4.9 thou/uL (1.40-6.50); %Basophils 0.7 % (0.0-1.0); %Eosinophils 1.5 % (0.0-10.0); %Lymphocytes 18.9 % (21.0-51.0); %Monocytes 5.7 % (0.0-10.0); %Neutrophils 72.9 % (42.0-75.0); Hematocrit 33.3 % (36.0-47.0); Hemoglobin 10.6 g/dL (12.0-16.0); Mean Corpuscular HGB CONC 31.8 g/dL (32.0-36.0); Mean Corpuscular Hemoglobin 28.7 pg (27.0-31.0); Mean Corpuscular Volume 90.2 fl (78.0-98.0); Mean Platelet Volume 10.6 fL (7.4-10.4); Platelet Count 176 10x3/uL (130-400); RBC Distribution Width 14.6 % (11.5-14.5); Red Blood Cell (RBC) Count 3.69 mill/uL (4.20-5.40); White Blood Cell (WBC) Count 6.7 10x3/uL (4.8-10.8)
[2023-11-16 06:03] LABS: Hemoglobin A1c 5.7 % (4.0-6.0)
[2023-11-16 06:23] LABS: Anion Gap 13 mmol/L (10-20); BUN (Urea Nitrogen) 16 mg/dL (9.8-20.1); Calc. Creatinine Clearance 89 mL/min (70-130); Calcium 8.1 mg/dL (7.8-10.44); Carbon Dioxide 30 mmol/L (23-31); Chloride 99 mmol/L (98-107); Cholesterol 136 mg/dl (< 200 Desired); Estimated GFR 90; Glucose 116 mg/dL (83-110); HDL Cholesterol 34 mg/dL (>60 Neg Risk); LDL Cholesterol, Calculated 87 mg/dL; Magnesium 2.6 mg/dL (1.6-2.6); Potassium 3.4 mmol/L (3.5-5.1); Sodium 139 mmol/L (136-145); Triglycerides 75 mg/dL (Less than 150)
[2023-11-16 06:34] LABS: Critical Call Chem Troponin I NUR.BR6@0634; Troponin I 1.176 ng/mL (< 0.028)
[2023-11-16] MEDS: Levothyroxine Sodium 125 MCG TAB PO SCH ×2 (07:39→08:52)
[2023-11-16] MEDS: Oxybutynin ER 5 MG TAB PO SCH (08:51)
[2023-11-16] MEDS: Aspirin 81 mg Enteric Coated Tablet PO SCH (08:52)
[2023-11-16] MEDS ORDERED: Non-Formulary Item 1 EACH (Oxybutynin Chloride [Oxybutynin Chloride Er] 10 MG Tab.Er.24) PO SCH (09:00)
[2023-11-16] MEDS ORDERED: Levothyroxine 150 MCG TAB PO SCH (09:00)
[2023-11-16] MEDS ORDERED: Enoxaparin 80 MG (0.8 mL) SYRINGE SC SCH ×2 (09:00→23:00)
[2023-11-16] MEDS ORDERED: Aspirin 81 mg Enteric Coated Tablet PO SCH (09:00)
[2023-11-16] MEDS ORDERED: Potassium Chloride 20 MEQ TAB PO SCH ×2 (10:15)
[2023-11-16 13:24] LABS: #Eosinphils 0.2 thou/uL (0.0-0.7); #Monocytes 0.4 thou/uL (0.11-0.59); %Basophils 0.6 % (0.0-1.0); %Eosinophils 3.1 % (0.0-10.0); %Lymphocytes 24.5 % (21.0-51.0); %Monocytes 6.3 % (0.0-10.0); %Neutrophils 65.3 % (42.0-75.0); Hematocrit 32.8 % (36.0-47.0); Hemoglobin 10.5 g/dL (12.0-16.0); Mean Corpuscular Hemoglobin 29.5 pg (27.0-31.0); Mean Corpuscular Volume 92.1 fl (78.0-98.0); Mean Platelet Volume 10.3 fL (7.4-10.4); Platelet Count 163 10x3/uL (130-400); RBC Distribution Width 14.4 % (11.5-14.5); Red Blood Cell (RBC) Count 3.56 mill/uL (4.20-5.40); White Blood Cell (WBC) Count 6.2 10x3/uL (4.8-10.8)
[2023-11-16 14:07] LABS: Critical Call Chem Troponin I NUR.MHC @1406; Troponin I 0.982 ng/mL (< 0.028)
[2023-11-16] MEDS: Midodrine HCl 5 MG TAB PO SCH ×2 (14:44→21:37)
[2023-11-16 15:42] LABS: #Basophils 0.1 thou/uL (0.0-0.2); #Eosinphils 0.2 thou/uL (0.0-0.7); #Monocytes 0.5 thou/uL (0.11-0.59); #Neutrophils 4.1 thou/uL (1.40-6.50); %Basophils 1.1 % (0.0-1.0); %Lymphocytes 25.9 % (21.0-51.0); %Monocytes 7.7 % (0.0-10.0); Hemoglobin 11.9 g/dL (12.0-16.0); Mean Corpuscular HGB CONC 31.3 g/dL (32.0-36.0); Mean Corpuscular Hemoglobin 29.5 pg (27.0-31.0); Mean Corpuscular Volume 94.1 fl (78.0-98.0); Platelet Count 174 10x3/uL (130-400); RBC Distribution Width 14.5 % (11.5-14.5); Red Blood Cell (RBC) Count 4.04 mill/uL (4.20-5.40); White Blood Cell (WBC) Count 6.7 10x3/uL (4.8-10.8)
[2023-11-16 16:09] LABS: Anion Gap 13 mmol/L (10-20); BUN (Urea Nitrogen) 15 mg/dL (9.8-20.1); Calc. Creatinine Clearance 80 mL/min (70-130); Calcium 8.5 mg/dL (7.8-10.44); Carbon Dioxide 30 mmol/L (23-31); Chloride 100 mmol/L (98-107); Estimated GFR 88; Glucose 129 mg/dL (83-110); Potassium 4.3 mmol/L (3.5-5.1); Sodium 139 mmol/L (136-145)
[2023-11-16] MEDS ORDERED: Atorvastatin Calcium 10 MG TAB PO SCH (21:00)
[2023-11-16] MEDS: Atorvastatin Calcium 40 MG TAB PO SCH (21:36)
[2023-11-17 05:23] LABS: #Basophils 0.1 thou/uL (0.0-0.2); #Eosinphils 0.2 thou/uL (0.0-0.7); #Monocytes 0.5 thou/uL (0.11-0.59); #Neutrophils 3.6 thou/uL (1.40-6.50); %Basophils 1.1 % (0.0-1.0); %Eosinophils 3.7 % (0.0-10.0); %Monocytes 8.1 % (0.0-10.0); %Neutrophils 57.8 % (42.0-75.0); Hematocrit 32.6 % (36.0-47.0); Hemoglobin 10.4 g/dL (12.0-16.0); Mean Corpuscular HGB CONC 31.9 g/dL (32.0-36.0); Mean Corpuscular Hemoglobin 29.3 pg (27.0-31.0); Mean Corpuscular Volume 91.8 fl (78.0-98.0); Mean Platelet Volume 10.2 fL (7.4-10.4); Platelet Count 174 10x3/uL (130-400); RBC Distribution Width 14.4 % (11.5-14.5); Red Blood Cell (RBC) Count 3.55 mill/uL (4.20-5.40); White Blood Cell (WBC) Count 6.3 10x3/uL (4.8-10.8)
[2023-11-17] MEDS: Levothyroxine Sodium 125 MCG TAB PO SCH (06:05)
[2023-11-17 06:21] LABS: Anion Gap 13 mmol/L (10-20); BUN (Urea Nitrogen) 16 mg/dL (9.8-20.1); Calc. Creatinine Clearance 92 mL/min (70-130); Calcium 8.7 mg/dL (7.8-10.44); Carbon Dioxide 29 mmol/L (23-31); Chloride 101 mmol/L (98-107); Estimated GFR 90; Glucose 107 mg/dL (83-110); Magnesium 2.3 mg/dL (1.6-2.6); Potassium 4.2 mmol/L (3.5-5.1); Sodium 139 mmol/L (136-145)
[2023-11-17] MEDS: Aspirin 81 mg Enteric Coated Tablet PO SCH (08:50)
[2023-11-17] MEDS: Midodrine HCl 5 MG TAB PO SCH ×3 (08:50→21:33)
[2023-11-17] MEDS: Oxybutynin ER 5 MG TAB PO SCH (08:50)
[2023-11-17] MEDS ORDERED: Furosemide 20 MG (2 mL) VIAL SLOW IVP SCH (09:00)
[2023-11-17] MEDS ORDERED: Empagliflozin 10 MG TAB PO SCH (10:15)
[2023-11-17] MEDS: Atorvastatin Calcium 40 MG TAB PO SCH (21:33)
[2023-11-18 04:44] LABS: #Basophils 0.1 thou/uL (0.0-0.2); #Eosinphils 0.2 thou/uL (0.0-0.7); #Monocytes 0.5 thou/uL (0.11-0.59); #Neutrophils 4.3 thou/uL (1.40-6.50); %Basophils 0.8 % (0.0-1.0); %Eosinophils 3.1 % (0.0-10.0); %Lymphocytes 30.6 % (21.0-51.0); %Monocytes 7.2 % (0.0-10.0); %Neutrophils 57.9 % (42.0-75.0); Hematocrit 33.9 % (36.0-47.0); Mean Corpuscular HGB CONC 32.4 g/dL (32.0-36.0); Mean Corpuscular Hemoglobin 29.6 pg (27.0-31.0); Mean Corpuscular Volume 91.4 fl (78.0-98.0); Mean Platelet Volume 10.7 fL (7.4-10.4); Platelet Count 175 10x3/uL (130-400); RBC Distribution Width 14.6 % (11.5-14.5); Red Blood Cell (RBC) Count 3.71 mill/uL (4.20-5.40); White Blood Cell (WBC) Count 7.5 10x3/uL (4.8-10.8)
[2023-11-18 05:07] LABS: ALT (SGPT) 24 U/L (8-55); AST (SGOT) 37 U/L (5-34); Albumin 3.7 g/dL (3.4-4.8); Alkaline Phosphatase 47 U/L (40-110); Anion Gap 13 mmol/L (10-20); BUN (Urea Nitrogen) 15 mg/dL (9.8-20.1); Bilirubin, Total 1.1 mg/dL (0.2-1.2); Calc. Creatinine Clearance 94 mL/min (70-130); Calcium 9.2 mg/dL (7.8-10.44); Carbon Dioxide 29 mmol/L (23-31); Chloride 101 mmol/L (98-107); Estimated GFR 91; Globulin 3.6 g/dL (2.4-3.5); Glucose 135 mg/dL (83-110); Potassium 4.6 mmol/L (3.5-5.1); Protein, Total 7.3 g/dL (5.8-8.1); Sodium 138 mmol/L (136-145)
[2023-11-18] MEDS: Levothyroxine Sodium 125 MCG TAB PO SCH (06:47)
[2023-11-18] MEDS: Oxybutynin ER 5 MG TAB PO SCH (08:38)
[2023-11-18] MEDS: Aspirin 81 mg Enteric Coated Tablet PO SCH (08:38)
[2023-11-18] MEDS: Midodrine HCl 5 MG TAB PO SCH ×3 (08:39→20:22)
[2023-11-18] MEDS: Empagliflozin 10 MG TAB PO SCH (08:39)
[2023-11-18] MEDS: Atorvastatin Calcium 40 MG TAB PO SCH (20:22)
[2023-11-19] MEDS: Levothyroxine Sodium 125 MCG TAB PO SCH (05:59)
[2023-11-19] MEDS: Aspirin 81 mg Enteric Coated Tablet PO SCH (08:41)
[2023-11-19] MEDS: Midodrine HCl 5 MG TAB PO SCH ×3 (08:41→20:28)
[2023-11-19] MEDS: Oxybutynin ER 5 MG TAB PO SCH (08:42)
[2023-11-19] MEDS: Empagliflozin 10 MG TAB PO SCH (08:42)
[2023-11-19] MEDS ORDERED: Furosemide 40 MG (4 mL) VIAL SLOW IVP SCH (13:30)
[2023-11-19] MEDS: Sacubitril 24MG/Valsartan 26 MG TAB PO SCH (20:28)
[2023-11-19] MEDS: Atorvastatin Calcium 40 MG TAB PO SCH (20:28)
[2023-11-20] MEDS: Levothyroxine Sodium 125 MCG TAB PO SCH (05:22)
[2023-11-20] MEDS: Sacubitril 24MG/Valsartan 26 MG TAB PO SCH ×2 (08:25→20:24)
[2023-11-20] MEDS: Oxybutynin ER 5 MG TAB PO SCH (08:25)
[2023-11-20] MEDS: Midodrine HCl 5 MG TAB PO SCH ×3 (08:25→20:24)
[2023-11-20] MEDS: Aspirin 81 mg Enteric Coated Tablet PO SCH (08:26)
[2023-11-20] MEDS: Empagliflozin 10 MG TAB PO SCH (08:26)
[2023-11-20] MEDS ORDERED: Furosemide 40 MG (4 mL) VIAL SLOW IVP SCH (13:45)
[2023-11-20] MEDS: Atorvastatin Calcium 40 MG TAB PO SCH (20:24)
[2023-11-20] MEDS: Sildenafil Citrate 20 MG TAB PO SCH (20:24)
[2023-11-21 04:27] LABS: Hematocrit 34.2 % (36.0-47.0); Mean Corpuscular HGB CONC 32.2 g/dL (32.0-36.0); Mean Corpuscular Hemoglobin 29.5 pg (27.0-31.0); Mean Corpuscular Volume 91.7 fl (78.0-98.0); Mean Platelet Volume 10.7 fL (7.4-10.4); Platelet Count 178 10x3/uL (130-400); RBC Distribution Width 14.8 % (11.5-14.5); Red Blood Cell (RBC) Count 3.73 mill/uL (4.20-5.40); White Blood Cell (WBC) Count 7.4 10x3/uL (4.8-10.8)
[2023-11-21 04:52] LABS: Anion Gap 9 mmol/L (10-20); BUN (Urea Nitrogen) 17 mg/dL (9.8-20.1); Calc. Creatinine Clearance 85 mL/min (70-130); Calcium 8.8 mg/dL (7.8-10.44); Carbon Dioxide 33 mmol/L (23-31); Chloride 100 mmol/L (98-107); Estimated GFR 89; Glucose 118 mg/dL (83-110); Potassium 4.1 mmol/L (3.5-5.1); Sodium 138 mmol/L (136-145)
[2023-11-21] MEDS: Levothyroxine Sodium 88 MCG TAB PO SCH (05:10)
[2023-11-21] MEDS ORDERED: Levothyroxine Sodium 112 MCG TAB PO SCH (06:00)
[2023-11-21] MEDS: Sacubitril 24MG/Valsartan 26 MG TAB PO SCH ×2 (08:12→20:39)
[2023-11-21] MEDS: Aspirin 81 mg Enteric Coated Tablet PO SCH (08:12)
[2023-11-21] MEDS: Oxybutynin ER 5 MG TAB PO SCH (08:12)
[2023-11-21] MEDS: Midodrine HCl 5 MG TAB PO SCH ×3 (08:12→20:39)
[2023-11-21] MEDS: Sildenafil Citrate 20 MG TAB PO SCH ×2 (08:13→20:40)
[2023-11-21] MEDS: Empagliflozin 10 MG TAB PO SCH (08:13)
[2023-11-21] MEDS ORDERED: Furosemide 40 MG (4 mL) VIAL SLOW IVP SCH (17:15)
[2023-11-21] MEDS: Atorvastatin Calcium 40 MG TAB PO SCH (20:39)
[2023-11-22] MEDS: Levothyroxine Sodium 88 MCG TAB PO SCH (05:48)
[2023-11-22] MEDS: Sacubitril 24MG/Valsartan 26 MG TAB PO SCH (09:24)
[2023-11-22] MEDS: Torsemide 20 MG TAB PO SCH ×2 (09:25→13:55)
[2023-11-22] MEDS: Sildenafil Citrate 20 MG TAB PO SCH (09:25)
[2023-11-22] MEDS: Aspirin 81 mg Enteric Coated Tablet PO SCH (09:25)
[2023-11-22] MEDS: Oxybutynin ER 5 MG TAB PO SCH (09:25)
[2023-11-22] MEDS: Midodrine HCl 5 MG TAB PO SCH ×2 (09:25→15:58)
[2023-11-22] MEDS: Empagliflozin 10 MG TAB PO SCH (09:25)
[2023-11-22 13:36] VITALS: BMI 28.2
[2023-11-22 15:58] VITALS: BP 81/50; TEMP 98.8
== END 2023-11-22 18:39 | disposition home or self-care (01) | DRG 280 ==
LOC: ERS 17:33 → 2NO 23:56
PROVIDERS: ADMIT Internal Medicine; ATTEND Internal Medicine
DX: I11.0 Hypertensive heart disease with heart failure (principal); I21.A1 Myocardial infarction type 2; I50.33 Acute on chronic diastolic (congestive) heart failure; J96.01 Acute respiratory failure with hypoxia; I25.10 Atherosclerotic heart disease of native coronary artery without angina pectoris; K21.9 Gastro-esophageal reflux disease without esophagitis; E03.9 Hypothyroidism, unspecified; I34.0 Nonrheumatic mitral (valve) insufficiency; I36.1 Nonrheumatic tricuspid (valve) insufficiency; I95.1 Orthostatic hypotension; R10.9 Unspecified abdominal pain; Z79.899 Other long term (current) drug therapy; Z88.8 Allergy status to other drugs, medicaments and biological substances; Z95.2 Presence of prosthetic heart valve; Z98.890 Other specified postprocedural states; Z79.890 Hormone replacement therapy; Z79.82 Long term (current) use of aspirin; Z90.89 Acquired absence of other organs; Z82.49 Family history of ischemic heart disease and other diseases of the circulatory system; Z88.6 Allergy status to analgesic agent; Z11.52 Encounter for screening for COVID-19
CPT/HCPCS: 0241U; 36415; 36416; 70450; 71045; 74177; 80048; 80053; 80061; 81001; 83036; 83690; 83735; 83880; 84439; 84443; 84481; 84484; 85025; 85027; 93005; 93306; 96374; 96375; J1650; J1940; J2270; J2405; J3475; J3490; Q9967

== ENCOUNTER 2023-12-02 18:04 | Inpatient (IN) | payer MEDICARE, MEDICAID ==
[2023-12-02 18:38] LABS: #Eosinphils 0.2 thou/uL (0.0-0.7); #Monocytes 0.4 thou/uL (0.11-0.59); #Neutrophils 4.8 thou/uL (1.40-6.50); %Basophils 0.6 % (0.0-1.0); %Eosinophils 2.3 % (0.0-10.0); %Lymphocytes 17.9 % (21.0-51.0); %Monocytes 5.6 % (0.0-10.0); %Neutrophils 73.3 % (42.0-75.0); Hematocrit 29.1 % (36.0-47.0); Hemoglobin 9.6 g/dL (12.0-16.0); Mean Corpuscular Volume 90.9 fl (78.0-98.0); Mean Platelet Volume 10.1 fL (7.4-10.4); Platelet Count 177 10x3/uL (130-400); RBC Distribution Width 15.2 % (11.5-14.5); White Blood Cell (WBC) Count 6.6 10x3/uL (4.8-10.8)
[2023-12-02] MEDS ORDERED: Midodrine HCl 5 MG TAB PO SCH (19:00)
[2023-12-02 19:02] LABS: ALT (SGPT) 14 U/L (8-55); AST (SGOT) 28 U/L (5-34); Albumin 3.6 g/dL (3.4-4.8); Alkaline Phosphatase 34 U/L (40-110); Anion Gap 15 mmol/L (10-20); BUN (Urea Nitrogen) 22 mg/dL (9.8-20.1); Bilirubin, Total 1.4 mg/dL (0.2-1.2); Calc. Creatinine Clearance 0 mL/min (70-130); Carbon Dioxide 33 mmol/L (23-31); Chloride 94 mmol/L (98-107); Estimated GFR 90; Globulin 3.5 g/dL (2.4-3.5); Glucose 119 mg/dL (83-110); Magnesium 2.1 mg/dL (1.6-2.6); Potassium 2.9 mmol/L (3.5-5.1); Protein, Total 7.1 g/dL (5.8-8.1); Sodium 139 mmol/L (136-145)
[2023-12-02] MEDS ORDERED: Potassium Chloride 20 MEQ TAB ONE (19:19)
[2023-12-02] MEDS ORDERED: NOREPINEPHRINE 8 MG/250 ML-D5W 250 ML ONE (19:21)
[2023-12-02 19:32] LABS: Critical Call Chem Troponin I NUR.KB14 @1932; Troponin I 0.929 ng/mL (< 0.028)
[2023-12-02] MEDS ORDERED: Senokot S 8.6-50 MG TAB PO PRN (20:16)
[2023-12-02] MEDS ORDERED: Calcium Carbonate 500 MG ChewTAB PO PRN (20:16)
[2023-12-02] MEDS ORDERED: Acetaminophen 325 MG TAB PO PRN (20:16)
[2023-12-02] MEDS ORDERED: NOREPINEPHRINE 8 MG/250 ML-D5W 250 ML IVPB SCH (20:30)
[2023-12-02] MEDS: Atorvastatin Calcium 40 MG TAB PO SCH (22:13)
[2023-12-02] MEDS: Midodrine HCl 5 MG TAB PO SCH (22:13)
[2023-12-02] MEDS: Enoxaparin 80 MG (0.8 mL) SYRINGE SC SCH (22:13)
[2023-12-02 22:19] VITALS: BMI 28.0
[2023-12-02 23:24] LABS: Critical Call Chem Troponin I RESULT DECREASING; Troponin I 0.901 ng/mL (< 0.028)
[2023-12-03 01:28] LABS: Critical Call Chem Troponin I RESULT DECREASING; Troponin I 0.748 ng/mL (< 0.028)
[2023-12-03 04:11] LABS: #Basophils 0.1 thou/uL (0.0-0.2); #Eosinphils 0.1 thou/uL (0.0-0.7); #Monocytes 0.6 thou/uL (0.11-0.59); #Neutrophils 7.3 thou/uL (1.40-6.50); %Basophils 0.5 % (0.0-1.0); %Lymphocytes 14.9 % (21.0-51.0); %Monocytes 6.5 % (0.0-10.0); %Neutrophils 76.9 % (42.0-75.0); Hematocrit 29.4 % (36.0-47.0); Hemoglobin 9.4 g/dL (12.0-16.0); Mean Corpuscular Hemoglobin 29.5 pg (27.0-31.0); Mean Corpuscular Volume 92.2 fl (78.0-98.0); Platelet Count 194 10x3/uL (130-400); RBC Distribution Width 15.6 % (11.5-14.5); Red Blood Cell (RBC) Count 3.19 mill/uL (4.20-5.40); White Blood Cell (WBC) Count 9.5 10x3/uL (4.8-10.8)
[2023-12-03 04:19] LABS: Hemoglobin A1c 5.8 % (4.0-6.0)
[2023-12-03 04:35] LABS: ALT (SGPT) 13 U/L (8-55); AST (SGOT) 31 U/L (5-34); Albumin 3.6 g/dL (3.4-4.8); Alkaline Phosphatase 35 U/L (40-110); BUN (Urea Nitrogen) 22 mg/dL (9.8-20.1); Bilirubin, Total 1.6 mg/dL (0.2-1.2); Calc. Creatinine Clearance 83 mL/min (70-130); Calcium 8.4 mg/dL (7.8-10.44); Cardiac Risk 3.8 (Less than 4.5); Cholesterol 123 mg/dl (< 200 Desired); Estimated GFR 89; Globulin 3.4 g/dL (2.4-3.5); Glucose 130 mg/dL (83-110); HDL Cholesterol 32 mg/dL (>60 Neg Risk); LDL Cholesterol, Calculated 76 mg/dL; Magnesium 2.3 mg/dL (1.6-2.6); Triglycerides 77 mg/dL (Less than 150)
[2023-12-03 04:46] LABS: Anion Gap 18 mmol/L (10-20); Carbon Dioxide 32 mmol/L (23-31); Chloride 96 mmol/L (98-107); Potassium 3.5 mmol/L (3.5-5.1); Sodium 142 mmol/L (136-145)
[2023-12-03] MEDS: Levothyroxine Sodium 125 MCG TAB PO SCH (05:03)
[2023-12-03] MEDS: Aspirin 81 mg Enteric Coated Tablet PO SCH (09:16)
[2023-12-03] MEDS: Midodrine HCl 5 MG TAB PO SCH ×3 (09:16→20:53)
[2023-12-03] MEDS: Empagliflozin 10 MG TAB PO SCH (09:17)
[2023-12-03] MEDS: Enoxaparin 80 MG (0.8 mL) SYRINGE SC SCH ×2 (09:17→20:55)
[2023-12-03] MEDS ORDERED: Midodrine HCl 5 MG TAB PO SCH (10:22)
[2023-12-03] MEDS: Oxybutynin ER 5 MG TAB PO SCH (12:42)
[2023-12-03 19:09] LABS: Free T4 (Free Thyroxine) 1.23 ng/dL (0.70-1.48); Thyroid Stimulating Hormone 0.7668 uIU/mL (0.35-4.94)
[2023-12-03] MEDS: Atorvastatin Calcium 40 MG TAB PO SCH (20:54)
[2023-12-04] MEDS: Levothyroxine Sodium 125 MCG TAB PO SCH (05:53)
[2023-12-04] MEDS: Ondansetron PF 4 MG/2 ML Vial IVP PRN (08:50)
[2023-12-04] MEDS ORDERED: Sildenafil Citrate 20 MG TAB PO SCH (09:00)
[2023-12-04] MEDS: Aspirin 81 mg Enteric Coated Tablet PO SCH (09:02)
[2023-12-04] MEDS: Midodrine HCl 5 MG TAB PO SCH ×3 (09:02→22:06)
[2023-12-04] MEDS: Enoxaparin 80 MG (0.8 mL) SYRINGE SC SCH ×2 (09:02→22:09)
[2023-12-04] MEDS: Oxybutynin ER 5 MG TAB PO SCH (09:02)
[2023-12-04] MEDS: Empagliflozin 10 MG TAB PO SCH (09:02)
[2023-12-04 09:05] LABS: #Basophils 0.1 thou/uL (0.0-0.2); #Eosinphils 0.2 thou/uL (0.0-0.7); #Monocytes 0.6 thou/uL (0.11-0.59); #Neutrophils 5.3 thou/uL (1.40-6.50); %Eosinophils 2.9 % (0.0-10.0); %Lymphocytes 24.6 % (21.0-51.0); %Monocytes 6.7 % (0.0-10.0); %Neutrophils 64.6 % (42.0-75.0); Hematocrit 26.5 % (36.0-47.0); Hemoglobin 8.4 g/dL (12.0-16.0); Mean Corpuscular HGB CONC 31.7 g/dL (32.0-36.0); Mean Corpuscular Hemoglobin 29.4 pg (27.0-31.0); Mean Corpuscular Volume 92.7 fl (78.0-98.0); Mean Platelet Volume 10.2 fL (7.4-10.4); Platelet Count 166 10x3/uL (130-400); RBC Distribution Width 15.6 % (11.5-14.5); Red Blood Cell (RBC) Count 2.86 mill/uL (4.20-5.40); White Blood Cell (WBC) Count 8.2 10x3/uL (4.8-10.8)
[2023-12-04 09:24] LABS: Phosphorus 4.1 mg/dL (2.3-4.7)
[2023-12-04 09:27] LABS: ALT (SGPT) 16 U/L (8-55); AST (SGOT) 32 U/L (5-34); Albumin 3.5 g/dL (3.4-4.8); Alkaline Phosphatase 35 U/L (40-110); Anion Gap 10 mmol/L (10-20); BUN (Urea Nitrogen) 27 mg/dL (9.8-20.1); Bilirubin, Total 1.2 mg/dL (0.2-1.2); Calc. Creatinine Clearance 91 mL/min (70-130); Carbon Dioxide 37 mmol/L (23-31); Chloride 97 mmol/L (98-107); Estimated GFR 91; Globulin 3.4 g/dL (2.4-3.5); Glucose 125 mg/dL (83-110); Magnesium 2.6 mg/dL (1.6-2.6); Potassium 3.4 mmol/L (3.5-5.1); Protein, Total 6.9 g/dL (5.8-8.1); Sodium 141 mmol/L (136-145)
[2023-12-04] MEDS ORDERED: Electrolyte Replacement Protocol 1 EACH FS SCH (13:15)
[2023-12-04] MEDS ORDERED: Potassium Chloride 20 MEQ TAB PO SCH (13:15)
[2023-12-04] MEDS: Potassium Chloride 20 MEQ in Premix 1 BAG IVPB SCH ×2 (13:52→15:14)
[2023-12-04] MEDS ORDERED: AcetaZOLAMIDE ER 500 MG CAP PO SCH (14:30)
[2023-12-04] MEDS ORDERED: Torsemide 20 MG TAB PO SCH ×2 (14:30)
[2023-12-04] MEDS ORDERED: Furosemide 40 MG (4 mL) VIAL SLOW IVP SCH (17:30)
[2023-12-04] MEDS: Atorvastatin Calcium 40 MG TAB PO SCH (22:05)
[2023-12-04] MEDS: Sildenafil Citrate 20 MG TAB PO SCH (22:07)
[2023-12-05 04:30] LABS: #Basophils 0.1 thou/uL (0.0-0.2); #Eosinphils 0.3 thou/uL (0.0-0.7); #Monocytes 0.6 thou/uL (0.11-0.59); %Basophils 0.7 % (0.0-1.0); %Lymphocytes 19.2 % (21.0-51.0); %Monocytes 6.6 % (0.0-10.0); Hematocrit 28.6 % (36.0-47.0); Hemoglobin 9.2 g/dL (12.0-16.0); Mean Corpuscular HGB CONC 32.2 g/dL (32.0-36.0); Mean Corpuscular Hemoglobin 29.4 pg (27.0-31.0); Mean Corpuscular Volume 91.4 fl (78.0-98.0); Mean Platelet Volume 10.9 fL (7.4-10.4); Platelet Count 163 10x3/uL (130-400); RBC Distribution Width 16.3 % (11.5-14.5); Red Blood Cell (RBC) Count 3.13 mill/uL (4.20-5.40); White Blood Cell (WBC) Count 8.6 10x3/uL (4.8-10.8)
[2023-12-05 04:53] LABS: ALT (SGPT) 13 U/L (8-55); AST (SGOT) 26 U/L (5-34); Albumin 3.4 g/dL (3.4-4.8); Alkaline Phosphatase 33 U/L (40-110); Anion Gap 10 mmol/L (10-20); BUN (Urea Nitrogen) 26 mg/dL (9.8-20.1); Bilirubin, Total 1.6 mg/dL (0.2-1.2); Calc. Creatinine Clearance 78 mL/min (70-130); Calcium 8.6 mg/dL (7.8-10.44); Carbon Dioxide 34 mmol/L (23-31); Chloride 102 mmol/L (98-107); Estimated GFR 87; Globulin 3.2 g/dL (2.4-3.5); Glucose 137 mg/dL (83-110); Potassium 3.8 mmol/L (3.5-5.1); Protein, Total 6.6 g/dL (5.8-8.1); Sodium 142 mmol/L (136-145)
[2023-12-05] MEDS: Levothyroxine Sodium 125 MCG TAB PO SCH (05:44)
[2023-12-05] MEDS: Empagliflozin 10 MG TAB PO SCH (09:26)
[2023-12-05] MEDS: Sildenafil Citrate 20 MG TAB PO SCH ×2 (09:26→21:50)
[2023-12-05] MEDS: Midodrine HCl 5 MG TAB PO SCH ×3 (09:26→21:52)
[2023-12-05] MEDS: Enoxaparin 80 MG (0.8 mL) SYRINGE SC SCH ×2 (09:26→21:52)
[2023-12-05] MEDS: Aspirin 81 mg Enteric Coated Tablet PO SCH (09:27)
[2023-12-05] MEDS: Oxybutynin ER 5 MG TAB PO SCH (09:27)
[2023-12-05] MEDS: Ondansetron PF 4 MG/2 ML Vial IVP PRN (15:44)
[2023-12-05] MEDS: Milrinone Lactate/D5W 20 MG in Premix 1 BAG IV SCH ×2 (18:01→22:03)
[2023-12-05 18:26] LABS: #Basophils 0.1 thou/uL (0.0-0.2); #Eosinphils 0.3 thou/uL (0.0-0.7); #Monocytes 0.6 thou/uL (0.11-0.59); #Neutrophils 6.5 thou/uL (1.40-6.50); %Basophils 0.9 % (0.0-1.0); %Eosinophils 2.7 % (0.0-10.0); %Lymphocytes 18.8 % (21.0-51.0); %Monocytes 6.4 % (0.0-10.0); %Neutrophils 70.6 % (42.0-75.0); Hemoglobin 8.9 g/dL (12.0-16.0); Mean Corpuscular Volume 90.9 fl (78.0-98.0); Mean Platelet Volume 10.4 fL (7.4-10.4); Platelet Count 162 10x3/uL (130-400); RBC Distribution Width 16.4 % (11.5-14.5); Red Blood Cell (RBC) Count 2.97 mill/uL (4.20-5.40); White Blood Cell (WBC) Count 9.3 10x3/uL (4.8-10.8)
[2023-12-05] MEDS: Atorvastatin Calcium 40 MG TAB PO SCH (21:50)
[2023-12-06] MEDS: Milrinone Lactate/D5W 20 MG in Premix 1 BAG IV SCH ×4 (04:51→23:03)
[2023-12-06] MEDS: Levothyroxine Sodium 125 MCG TAB PO SCH (05:24)
[2023-12-06 05:37] LABS: #Basophils 0.1 thou/uL (0.0-0.2); #Eosinphils 0.4 thou/uL (0.0-0.7); #Monocytes 0.7 thou/uL (0.11-0.59); #Neutrophils 7.6 thou/uL (1.40-6.50); %Basophils 0.8 % (0.0-1.0); %Lymphocytes 14.1 % (21.0-51.0); %Monocytes 7.1 % (0.0-10.0); Hematocrit 26.8 % (36.0-47.0); Hemoglobin 8.7 g/dL (12.0-16.0); Mean Corpuscular HGB CONC 32.5 g/dL (32.0-36.0); Mean Corpuscular Hemoglobin 29.3 pg (27.0-31.0); Mean Corpuscular Volume 90.2 fl (78.0-98.0); Mean Platelet Volume 10.4 fL (7.4-10.4); Platelet Count 158 10x3/uL (130-400); Red Blood Cell (RBC) Count 2.97 mill/uL (4.20-5.40); White Blood Cell (WBC) Count 10.4 10x3/uL (4.8-10.8)
[2023-12-06 06:09] LABS: Anion Gap 12 mmol/L (10-20); BUN (Urea Nitrogen) 28 mg/dL (9.8-20.1); Calc. Creatinine Clearance 80 mL/min (70-130); Calcium 8.9 mg/dL (7.8-10.44); Carbon Dioxide 28 mmol/L (23-31); Chloride 105 mmol/L (98-107); Estimated GFR 88; Glucose 136 mg/dL (83-110); Potassium 3.3 mmol/L (3.5-5.1); Sodium 142 mmol/L (136-145)
[2023-12-06] MEDS ORDERED: Potassium Chloride 20 MEQ TAB PO SCH (08:00)
[2023-12-06] MEDS: Sildenafil Citrate 20 MG TAB PO SCH ×2 (08:18→22:04)
[2023-12-06] MEDS: Empagliflozin 10 MG TAB PO SCH (08:18)
[2023-12-06] MEDS: Aspirin 81 mg Enteric Coated Tablet PO SCH (08:18)
[2023-12-06] MEDS: Oxybutynin ER 5 MG TAB PO SCH (08:18)
[2023-12-06] MEDS: Midodrine HCl 5 MG TAB PO SCH ×3 (08:18→22:04)
[2023-12-06] MEDS: Enoxaparin 80 MG (0.8 mL) SYRINGE SC SCH ×2 (08:19→22:03)
[2023-12-06] MEDS: Ondansetron PF 4 MG/2 ML Vial IVP PRN (08:21)
[2023-12-06] MEDS: Atorvastatin Calcium 40 MG TAB PO SCH (22:03)
[2023-12-07] MEDS: Milrinone Lactate/D5W 20 MG in Premix 1 BAG IV SCH ×4 (04:48→22:46)
[2023-12-07 04:55] LABS: #Basophils 0.1 thou/uL (0.0-0.2); #Eosinphils 0.3 thou/uL (0.0-0.7); #Monocytes 0.7 thou/uL (0.11-0.59); #Neutrophils 7.9 thou/uL (1.40-6.50); %Basophils 0.5 % (0.0-1.0); %Lymphocytes 14.5 % (21.0-51.0); %Monocytes 6.2 % (0.0-10.0); Hematocrit 26.7 % (36.0-47.0); Hemoglobin 8.6 g/dL (12.0-16.0); Mean Corpuscular HGB CONC 32.2 g/dL (32.0-36.0); Mean Corpuscular Hemoglobin 29.4 pg (27.0-31.0); Mean Corpuscular Volume 91.1 fl (78.0-98.0); Mean Platelet Volume 10.4 fL (7.4-10.4); Platelet Count 174 10x3/uL (130-400); RBC Distribution Width 16.5 % (11.5-14.5); Red Blood Cell (RBC) Count 2.93 mill/uL (4.20-5.40); White Blood Cell (WBC) Count 10.5 10x3/uL (4.8-10.8)
[2023-12-07 05:21] LABS: Anion Gap 12 mmol/L (10-20); BUN (Urea Nitrogen) 24 mg/dL (9.8-20.1); Calc. Creatinine Clearance 86 mL/min (70-130); Calcium 8.7 mg/dL (7.8-10.44); Carbon Dioxide 28 mmol/L (23-31); Chloride 104 mmol/L (98-107); Estimated GFR 90; Glucose 136 mg/dL (83-110); Potassium 3.6 mmol/L (3.5-5.1); Sodium 140 mmol/L (136-145)
[2023-12-07] MEDS: Levothyroxine Sodium 125 MCG TAB PO SCH (06:07)
[2023-12-07] MEDS ORDERED: Furosemide 40 MG (4 mL) VIAL SLOW IVP SCH ×2 (08:45→14:45)
[2023-12-07] MEDS: Enoxaparin 80 MG (0.8 mL) SYRINGE SC SCH (09:39)
[2023-12-07] MEDS: Aspirin 81 mg Enteric Coated Tablet PO SCH (09:39)
[2023-12-07] MEDS: Sildenafil Citrate 20 MG TAB PO SCH ×2 (09:39→21:26)
[2023-12-07] MEDS: Empagliflozin 10 MG TAB PO SCH (09:39)
[2023-12-07] MEDS: Midodrine HCl 5 MG TAB PO SCH ×3 (09:40→21:26)
[2023-12-07] MEDS: Oxybutynin ER 5 MG TAB PO SCH (09:40)
[2023-12-07] MEDS: Ondansetron PF 4 MG/2 ML Vial IVP PRN (10:04)
[2023-12-07 18:14] LABS: #Eosinphils 0.1 thou/uL (0.0-0.7); #Monocytes 0.8 thou/uL (0.11-0.59); #Neutrophils 8.9 thou/uL (1.40-6.50); %Basophils 0.3 % (0.0-1.0); %Lymphocytes 13.6 % (21.0-51.0); %Monocytes 6.5 % (0.0-10.0); %Neutrophils 77.9 % (42.0-75.0); Hematocrit 26.6 % (36.0-47.0); Hemoglobin 8.9 g/dL (12.0-16.0); Mean Corpuscular HGB CONC 33.5 g/dL (32.0-36.0); Mean Corpuscular Volume 89.6 fl (78.0-98.0); Mean Platelet Volume 10.1 fL (7.4-10.4); Platelet Count 165 10x3/uL (130-400); RBC Distribution Width 16.6 % (11.5-14.5); Red Blood Cell (RBC) Count 2.97 mill/uL (4.20-5.40); White Blood Cell (WBC) Count 11.5 10x3/uL (4.8-10.8)
[2023-12-07] MEDS: Atorvastatin Calcium 40 MG TAB PO SCH (21:26)
[2023-12-08] MEDS ORDERED: NOREPINEPHRINE 8 MG/250 ML-D5W 250 ML ONE (02:58)
[2023-12-08] MEDS: Ondansetron PF 4 MG/2 ML Vial IVP PRN ×2 (02:59→10:22)
[2023-12-08] MEDS: Milrinone Lactate/D5W 20 MG in Premix 1 BAG IV SCH ×2 (03:38→10:22)
[2023-12-08 03:43] LABS: #Basophils 0.1 thou/uL (0.0-0.2); #Eosinphils 0.2 thou/uL (0.0-0.7); #Monocytes 0.9 thou/uL (0.11-0.59); #Neutrophils 9.2 thou/uL (1.40-6.50); %Basophils 0.4 % (0.0-1.0); %Eosinophils 1.9 % (0.0-10.0); %Lymphocytes 18.1 % (21.0-51.0); %Monocytes 6.8 % (0.0-10.0); Hematocrit 26.6 % (36.0-47.0); Hemoglobin 8.7 g/dL (12.0-16.0); Mean Corpuscular HGB CONC 32.7 g/dL (32.0-36.0); Mean Corpuscular Hemoglobin 30.3 pg (27.0-31.0); Mean Platelet Volume 10.5 fL (7.4-10.4); Platelet Count 195 10x3/uL (130-400); RBC Distribution Width 16.8 % (11.5-14.5); Red Blood Cell (RBC) Count 2.87 mill/uL (4.20-5.40); White Blood Cell (WBC) Count 12.8 10x3/uL (4.8-10.8)
[2023-12-08] MEDS ORDERED: Lactated Ringer's 250 ML IV SCH ×2 (03:45→04:00)
[2023-12-08] MEDS ORDERED: NOREPINEPHRINE 8 MG/250 ML-D5W 250 ML IVPB SCH (03:45)
[2023-12-08 03:52] LABS: Mean Corpuscular Volume 92.7 fl (78.0-98.0)
[2023-12-08 04:15] LABS: Anion Gap 17 mmol/L (10-20); BUN (Urea Nitrogen) 27 mg/dL (9.8-20.1); Calc. Creatinine Clearance 68 mL/min (70-130); Calcium 8.3 mg/dL (7.8-10.44); Carbon Dioxide 24 mmol/L (23-31); Chloride 100 mmol/L (98-107); Estimated GFR 80; Glucose 162 mg/dL (83-110); Magnesium 2.1 mg/dL (1.6-2.6); Potassium 3.2 mmol/L (3.5-5.1); Sodium 138 mmol/L (136-145)
[2023-12-08] MEDS ORDERED: Furosemide 40 MG (4 mL) VIAL SLOW IVP SCH (04:15)
[2023-12-08 04:23] LABS: Critical Call Chem Troponin I ICU.TMC@0423; Troponin I 4.304 ng/mL (< 0.028)
[2023-12-08 04:49] VITALS: BP 97/55
[2023-12-08] MEDS ORDERED: Digoxin 0.5 MG/2 ML AMP ONE (06:00)
[2023-12-08] MEDS: Furosemide 40 MG (4 mL) VIAL SLOW IVP SCH ×2 (06:13→12:58)
[2023-12-08] MEDS ORDERED: Amiodarone 450 MG in Dextrose 5% in Water 250 ML IVPB SCH (06:15)
[2023-12-08] MEDS ORDERED: Digoxin 0.5 MG/2 ML AMP SLOW IVP SCH ×3 (06:15→12:00)
[2023-12-08] MEDS: Levothyroxine Sodium 125 MCG TAB PO SCH (06:54)
[2023-12-08] MEDS ORDERED: Amiodarone 150 MG in Dextrose 5% in Water 100 ML IVPB SCH (07:00)
[2023-12-08 07:22] VITALS: TEMP 98
[2023-12-08] MEDS ORDERED: Potassium Chloride 20 MEQ TAB PO SCH (08:00)
[2023-12-08] MEDS ORDERED: Morphine 2 MG/ML VIAL SLOW IVP PRN (08:41)
[2023-12-08] MEDS ORDERED: Lorazepam 2 MG/ML VIAL SLOW IVP PRN (08:41)
[2023-12-08] MEDS: Oxybutynin ER 5 MG TAB PO SCH (08:49)
[2023-12-08] MEDS: Empagliflozin 10 MG TAB PO SCH (08:49)
[2023-12-08] MEDS: Midodrine HCl 5 MG TAB PO SCH (08:49)
[2023-12-08] MEDS: Aspirin 81 mg Enteric Coated Tablet PO SCH (08:49)
[2023-12-08] MEDS ORDERED: Potassium Chloride 40 MEQ in Premix 1 BAG IVPB SCH (09:00)
[2023-12-08] MEDS ORDERED: Metoclopramide HCl 10 MG (2 mL) VIAL IVP PRN (11:02)
[2023-12-08] MEDS ORDERED: Promethazine HCl 25 MG SUPP PR PRN (11:03)
== END 2023-12-08 13:08 | disposition expired ==
LOC: ERS 18:04 → SUATTDRO 18:04 → CCU 20:02 → 2NO 12-04 20:36 → IMCU/EMU 12-07 17:37 → CCU 12-08 03:02
PROVIDERS: ADMIT Internal Medicine; ATTEND Hospitalist
PROC: 02H633Z Insertion of Infusion Device into Right Atrium, Percutaneous Approach (ICD-10-PCS; principal; 2023-12-02)
PROC: B548ZZA Ultrasonography of Superior Vena Cava, Guidance (ICD-10-PCS; 2023-12-02)
PROC: 3E033XZ Introduction of Vasopressor into Peripheral Vein, Percutaneous Approach (ICD-10-PCS; 2023-12-02)
PROC: 30233N1 Transfusion of Nonautologous Red Blood Cells into Peripheral Vein, Percutaneous Approach (ICD-10-PCS; 2023-12-04)
DX: I11.0 Hypertensive heart disease with heart failure (principal); I21.A1 Myocardial infarction type 2; G93.41 Metabolic encephalopathy; I50.33 Acute on chronic diastolic (congestive) heart failure; J96.21 Acute and chronic respiratory failure with hypoxia; Z66 Do not resuscitate; E03.9 Hypothyroidism, unspecified; E78.5 Hyperlipidemia, unspecified; Z96.651 Presence of right artificial knee joint; I25.10 Atherosclerotic heart disease of native coronary artery without angina pectoris; I08.1 Rheumatic disorders of both mitral and tricuspid valves; D64.9 Anemia, unspecified; E87.6 Hypokalemia; I08.3 Combined rheumatic disorders of mitral, aortic and tricuspid valves; I27.21 Secondary pulmonary arterial hypertension; K21.9 Gastro-esophageal reflux disease without esophagitis; I46.9 Cardiac arrest, cause unspecified; R57.0 Cardiogenic shock; Z98.890 Other specified postprocedural states; Z88.8 Allergy status to other drugs, medicaments and biological substances; Z95.2 Presence of prosthetic heart valve; Z79.82 Long term (current) use of aspirin; Z79.899 Other long term (current) drug therapy
CPT/HCPCS: 36415; 36430; 36556; 71045; 80048; 80053; 80061; 82533; 82728; 83036; 83540; 83735; 83880; 84100; 84439; 84443; 84481; 84484; 85025; 86850; 86900; 86901; 93005; 93010; 93306; 93798; 94760; 96365; 96366; J0282; J1160; J1650; J1940; J2260; J2405; J2765; J3480; J7070; J7120; P9016